=== PATIENT | male | born 1950 | race Caucasian/White ===

== ENCOUNTER 2020-08-15 11:21 | Inpatient (IN) ==
[2020-08-15] MEDS ORDERED: IOPAMIDOL 100 ML BOTTLE IV ONE (11:22)
[2020-08-15] MEDS ORDERED: 0.9 % SODIUM CHLORIDE 1,000 ML IV ONE ×2 (11:25→13:44)
[2020-08-15] MEDS ORDERED: IPRATROPIUM/ALBUTEROL 3 ML AMPUL.NEB NEB ONE (11:25)
[2020-08-15] MEDS ORDERED: ACETAMINOPHEN 1,000 MG/100 ML BAG IV ONE (11:28)
[2020-08-15] MEDS ORDERED: PIPERACILLIN SODIUM/TAZOBACTAM 3.375 GM in DEXTROSE 5% IN WATER 50 ML IV ONE (11:56)
--- NOTE | 2020-08-15 12:00 | XRay Report ---
CLINICAL INFORMATION: dyspnea COMPARISON: None. FINDINGS: Moderate cardiomegaly appreciated. Mediastinum is unremarkable. There is mild upper lobe redistribution of pulmonary vasculature. There is no definite edema - lungs are clear. No effusions IMPRESSION: Borderline CHF or volume overload Interpreted and Authenticated by: Torrey Alfredo 08/15/20
--- NOTE | 2020-08-15 12:37 | Emergency Department Note ---
SOB HPI General Chief Complaint: Shortness of Breath/Dyspnea Stated Complaint: shortness of breath, n/v, fever, chills Time Seen by Provider: 08/15/20 11:24 Source: patient and EMS Mode of arrival: EMS Limitations: no limitations History of Present Illness HPI Narrative: This a 69-year-old male who comes in with sepsis. He received his first Covid vaccine on 07/23/2020. He began developing viral symptoms with myalgias, fever, cough, mild shortness of breath, congestion on with worsening symptoms on Friday with high fever. He has continued to feel worse, so came in for evaluation. He has a history of CKD, gout, high blood pressure, urinary retention. Not diabetic, morbidly obese with a BMI 37. Denies new rashes or lesions. Denies diarrhea, dysuria or hematuria. He had little bit of nausea this morning. Lives at home with his , she is not symptomatic. Related Data Home Medications Medication Instructions Recorded Confirmed niacin 500 mg capsule,extended 500 mg PO QAM cap 11/25/14 08/15/20 release omega-3 fatty acids 1,000 mg 1,000 mg PO QDAY cap 11/25/14 08/15/20 capsule tamsulosin 0.4 mg capsule 0.4 mg PO QDAY cap 11/25/14 08/15/20 allopurinol 100 mg tablet 100 mg PO TID tab 11/21/17 08/15/20 cholecalciferol (vitamin D3) 50 2,000 unit PO QDAY cap 11/21/17 08/15/20 mcg (2,000 unit) capsule garlic extract 500 mg capsule 1,000 mg PO QDAY cap 11/21/17 08/15/20 losartan 100 1 tab PO QDAY 11/21/17 08/15/20 mg-hydrochlorothiazide 12.5 mg tablet magnesium 500 mg PO QDAY 11/21/17 08/15/20 multivitamin 1 tab PO QAM 05/12/20 08/15/20 amoxicillin-pot clavulanate 1 tab PO BID 08/15/20 08/15/20 atenolol 50 mg PO DAILY 08/15/20 08/15/20 Previous Rx's Medication Instructions Recorded diltiazem HCl 180 mg 180 mg PO QHS #90 cap 08/10/20 capsule,extended release 24 hr Allergies Allergy/AdvReac Type Severity Reaction Status Date / Time No Known Drug Allergies Allergy Verified 08/15/20 11:26 Review of Systems ROS ROS Narrative: Narrative: All systems ED: reviewed and negative except as stated. [facility] Narrative Patient History Narrative: Narrative: Medical/Surgical/Family History All Active Problems (Updated 08/15/20 @ 16:16 by Carmen Alvarado PA-C) Sepsis (Acute) Fever of unknown origin (FUO) (Acute) CKD stage G2/A3, GFR 60-89 and albumin creatinine ratio >300 mg/g (Chronic) Mixed hyperlipidemia (Chronic) Asymptomatic proteinuria (Chronic) Chronic Kidney Disease (Acute) Chronic kidney disease, stage II (mild) (Chronic) History of shoulder surgery (Acute) Hammer toe (Acute) History of foot surgery (Acute) Shoulder pain (Acute) Proteinuria (Chronic) Morbid obesity (Chronic) Hypertensive renal disease (Chronic) Hypertension, essential (Chronic) Hyperglycemia (Acute) Gout (Chronic) Edema (Chronic) Diverticulosis of colon (Chronic) Chronic obstructive pulmonary disease (Chronic) Chronic kidney disease, stage 1, normal or increased GFR (Chronic) Medical History (Updated 08/15/20 @ 16:16 by Carmen Alvarado PA-C) 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 BPH without urinary obstruction 04/21/2013 Chronic Kidney Disease Chronic kidney disease, stage 1, normal or increased GFR Chronic kidney disease, stage II (mild) Chronic obstructive pulmonary disease CKD stage G2/A3, GFR 60-89 and albumin creatinine ratio >300 mg/g Normal renal ultrasound actually enlarged kidneys 15 to 16 cm bilaterally), SPEP and UPEP, hepatitis serologies all negative Improved proteinuria with ARB Diverticulosis of colon Edema currently no edema will add spironolactone if needed Gout Hyperglycemia Hypertension, essential Goal less than 140/90mmHg, home SBPs per pt between 120-[address] with losartan HCTZ and atenolol Weight loss, daily walk for 30 min and low salt diet recommended Hypertensive renal disease at goal Stop atenolol (08/2020), add diltiazem 180 mg a day and continue losartan-hctz (100/12.5) no aldosterone antagonist follow low sodium diet walk for 30 min every day Mixed hyperlipidemia Currently not taking a statin is on niacin, omega-3 fish oil, and some garlic supplement Morbid obesity Onychomycosis Proteinuria Shoulder pain Surgical History Hammer toe surgery History of foot surgery Right foot History of shoulder surgery 07/2012 Left replacement Social History Smoking Status: Former smoker Alcohol Intake Frequency: holiday/special occasion only Exam Narrative Narrative: General: AOx3, NAD, nontoxic appearing. Pleasant and conversant. HEENT: PERRLA, EOMI, normocephalic. Moist mucous membranes. Normal facies and normal dentition. Chest: Symmetric, no pain to palpation Respiratory: Lungs subtle crackles bilaterally in the bases. No respiratory distress. Unlabored breathing. Heart: Tachycardia with regular rhythm, no murmurs/clicks/rubs. Abdomen: Non-tender, Non distended, normal bowel tones. No organomegaly. Extremities: Warm and well perfused. No edema. DP 2+ bilaterally. No venous stasis. Neuro: No focal deficits. Cranial nerves II-XII normal. Skin: Warm dry, pallor, no rashes or lesions, no cyanosis. Psych: Normal mood and affect Heme/Lymph: No bruising General Limitations: no limitations Course Course Course Narrative: 69-year-old male with is evaluated for presentation of sepsis with fever 102.4 Fahrenheit tachycardia Reevaluation(s) Reevaluation #1: Sepsis work-up to include CBC with differential, CMP, chest x- ray, urinalysis, take acid, D-dimer given his tachycardia and fever, blood cul tures x2, and troponin Give 1 L IV fluid hydration and monitor for fluid response. Tylenol for fever, start Zosyn empirically Reevaluation #2: Chest x-ray shows bilateral interstitial edema, no evidence of infiltrates. CBC resulted without leukocytosis. Lactic acid is 2.0. UA negative. CMP with only significant finding of slightly elevated bilirubin of 1.1. Creatinine 0.7. D-dimer elevated at 0.53. Heart rate with minimal improvement with 1 L IV fluid. Give additional liter IV fluid, CTA of the chest to rule out PE. Covid and influenza rapid screens were negative Reevaluation #3: CTA without evidence of PE or infiltrates. Findings are suggestive of mild bronchitis or asthma given slight wall thickening of the bronchi. Pleural spaces are noted as normal. Patient continues to fever to 102 Fahrenheit even with acetaminophen intervention. Still feeling quite weak. Heart rate remains elevated and he is hypertensive. He has not received his daily diltiazem so we will go ahead and give this during his evaluation here. This may be contributing to his tachycardia. Additional Reevaluation(s): Given patient's ongoing fever without known source he will need to be admitted for further work-up. Blood cultures x2 are pending. He has been given IV Zosyn and 2 L fluid resuscitation with significantly improved heart rate to the low 90s. Respiratory rate continues to be elevated at 28; however he is satting 94% on room air. I discussed this patient with the hospitalist who agrees to admission. Vital Signs Vital signs: Vital Signs Temperature 104 F H 08/15/20 11:22 Pulse Rate 115 H 08/15/20 11:22 Respiratory Rate 20 08/15/20 11:22 Pulse Oximetry (%) 95 08/15/20 11:22 Temperature 102.7 F H 08/15/20 18:07 Pulse Rate 92 H 08/15/20 18:46 Respiratory Rate 28 H 08/15/20 18:46 Blood Pressure 137/72 08/15/20 18:46 Pulse Oximetry (%) 94 08/15/20 18:46 MDM MDM Narrative Medical decision making narrative: Sepsis Fever of unknown origin Patient meets SIRS criteria with tachycardia, increased respiratory rate, and a lactic acid of 2.0. Patient has been hemodynamically stable with elevated blood pressures during this evaluation. He has been fluid responsive with 2 L IV fluids with heart rate improving to 92 bpm. Blood cultures x2 pending. Admit inpatient Lab Data Result diagrams: 08/15/20 12:06 08/15/20 12:06 Labs: Lab Results 08/15/20 08/15/20 08/15/20 Range/Units 12:06 12:06 12:06 WBC 9.8 (4.5-11.0) K/mcL RBC 4.08 L (4.50-5.90) M/mcL Hgb 13.0 L (13.5-16.5) g/dL Hct 36.5 L (41.0-55.0) % MCV 89.5 (80.0-100.0) fL MCH 31.9 (26.0-34.0) pg MCHC 35.6 (31.0-36.0) g/dL RDW 13.3 (11.5-14.5) % Plt Count 112 L (140-440) K/mcL MPV 11.1 H (7.4-10.4) fL Seg Neutrophils % 91 H (38-78) % Lymphocytes % 7 L (15-49) % Monocytes % (Manual) 2 (1-12) % Platelet Estimate Decreased A (Normal) RBC Morphology Abnormal A (Normal) Polychromasia 1+ A (None Seen) D-Dimer (0.27-0.50) ug/mL VBG Lactic Acid (0.5-2.0) mmol/L Sodium 138 (133-145) mmol/L Potassium 3.4 (3.3-5.1) mmol/L Chloride 101 (96-108) mmol/L Carbon Dioxide 24 (22-30) mmol/L Anion Gap 13.0 (8.0-16.0) BUN 18 (8-23) mg/dL Creatinine 1.1 (0.7-1.2) mg/dL GFR Calculation 67 Glucose 149 H (70-105) mg/dL Calcium 8.4 L (8.6-10.4) mg/dL Total Bilirubin 1.1 H (0.1-1.0) mg/dL AST 20 (<40) U/L ALT 9 (<40) U/L Alkaline Phosphatase 76 (39-117) U/L Troponin T < 0.01 (<0.03) ng/mL Total Protein 5.9 (5.9-8.4) gm/dL Albumin 3.5 (3.2-5.2) gm/dL Globulin 2.4 (2.2-3.7) gm/dL Albumin/Globulin Ratio 1.5 (1.0-2.3) Urine Color Urine Appearance (Clear) Urine pH (5.0-9.0) Ur Specific [place] (1.000-1.035) Urine Protein (Negative) mg/dL Urine Glucose (UA) (Negative) mg/dL Urine Ketones (Negative) mg/dL Urine Occult Blood (Negative) mg/dL Urine Nitrate (Negative) Urine Bilirubin (Negative) mg/dL Urine Urobilinogen mg/dL Ur Leukocyte Esterase (Negative) /ug Urine RBC (0-3) /hpf Urine WBC (0-4) /hpf Ur Squamous Epith Cells (0-4) /hpf Urine Bacteria (0) /hpf Urine Mucus (None) /hpf Ur Culture Indicated? 08/15/20 08/15/20 08/15/20 Range/Units 12:06 12:20 13:16 WBC (4.5-11.0) K/mcL RBC (4.50-5.90) M/mcL Hgb (13.5-16.5) g/dL Hct (41.0-55.0) % MCV (80.0-100.0) fL MCH (26.0-34.0) pg MCHC (31.0-36.0) g/dL RDW (11.5-14.5) % Plt Count (140-440) K/mcL MPV (7.4-10.4) fL Seg Neutrophils % (38-78) % Lymphocytes % (15-49) % Monocytes % (Manual) (1-12) % Platelet Estimate (Normal) RBC Morphology (Normal) Polychromasia (None Seen) D-Dimer 0.57 H (0.27-0.50) ug/mL VBG Lactic Acid 2.0 (0.5-2.0) mmol/L Sodium (133-145) mmol/L Potassium (3.3-5.1) mmol/L Chloride (96-108) mmol/L Carbon Dioxide (22-30) mmol/L Anion Gap (8.0-16.0) BUN (8-23) mg/dL Creatinine (0.7-1.2) mg/dL GFR Calculation Glucose (70-105) mg/dL Calcium (8.6-10.4) mg/dL Total Bilirubin (0.1-1.0) mg/dL AST (<40) U/L ALT (<40) U/L Alkaline Phosphatase (39-117) U/L Troponin T (<0.03) ng/mL Total Protein (5.9-8.4) gm/dL Albumin (3.2-5.2) gm/dL Globulin (2.2-3.7) gm/dL Albumin/Globulin Ratio (1.0-2.3) Urine Color [place] Urine Appearance Hazy A (Clear) Urine pH 6.0 (5.0-9.0) Ur Specific [place] 1.022 (1.000-1.035) Urine Protein >=500 A (Negative) mg/dL Urine Glucose (UA) Negative (Negative) mg/dL Urine Ketones Negative (Negative) mg/dL Urine Occult Blood Negative (Negative) mg/dL Urine Nitrate Negative (Negative) Urine Bilirubin Negative (Negative) mg/dL Urine Urobilinogen Negative mg/dL Ur Leukocyte Esterase Negative (Negative) /ug Urine RBC 1 (0-3) /hpf Urine WBC 1 (0-4) /hpf Ur Squamous Epith Cells 0 (0-4) /hpf Urine Bacteria None (0) /hpf Urine Mucus Few A (None) /hpf Ur Culture Indicated? No ED POC Tests ED POC Tests: HOMER - Influenza A Negative HOMER - Influenza B Negative HOMER - SARS Antigen Negative Discharge Plan Patient/Caregiver Discharge Instructions Pt seen by MUSIC REHABILITATION THERAPIST/PA only: Yes Clinical Impression: Sepsis, Chronic obstructive pulmonary disease, Fever of unknown origin (FUO) Patient Disposition: Xfer As Inpt ([facility]) Follow up with: Umesh Eason DO [Primary Care Provider] - Prescriptions: No Action cholecalciferol (vitamin D3) 2,000 unit capsule 2,000 unit PO QDAY RF: 0 garlic extract 500 mg capsule 1,000 mg PO QDAY RF: 0 magnesium 500 mg PO QDAY RF: 0 losartan-hydrochlorothiazide 100-12.5 mg tablet 1 tab PO QDAY RF: 0 allopurinol 100 mg tablet 100 mg PO TID RF: 0 omega-3 fatty acids 1,000 mg capsule 1,000 mg PO QDAY RF: 0 tamsulosin 0.4 mg capsule,extended release 24hr 0.4 mg PO QDAY RF: 0 niacin 500 mg capsule, extended release 500 mg PO QAM RF: 0 multivitamin [Daily Multi-Vitamin] Tablet 1 tab PO QAM RF: 0 diltiazem HCl 180 mg capsule,extended release 24hr 180 mg PO QHS Qty: 90 RF: 3 atenolol 50 mg tablet 50 mg PO DAILY RF: 0 amoxicillin-pot clavulanate 875-125 mg tablet 1 tab PO BID RF: 0
[2020-08-15 13:22] LABS: Hematocrit 36.5 % (41.0-55.0); Mean Cell Volume 89.5 fL (80.0-100.0); Mean Corpuscular HGB Conc 35.6 g/dL (31.0-36.0); Mean Platelet Volume 11.1 fL (7.4-10.4); Platelet Count 112 K/mcL (140-440); RBC 4.08 M/mcL (4.50-5.90); Red Cell Distribution Width 13.3 % (11.5-14.5); WBC 9.8 K/mcL (4.5-11.0)
[2020-08-15 13:33] LABS: ALT/SGPT 9 U/L (<40); AST/SGOT 20 U/L (<40); Albumin 3.5 gm/dL (3.2-5.2); Albumin/Globulin Ratio 1.5 (1.0-2.3); Alkaline Phosphatase 76 U/L (39-117); Bilirubin,Total 1.1 mg/dL (0.1-1.0); Blood Urea Nitrogen 18 mg/dL (8-23); Calcium 8.4 mg/dL (8.6-10.4); Carbon Dioxide 24 mmol/L (22-30); Chloride 101 mmol/L (96-108); Globulin 2.4 gm/dL (2.2-3.7); Glomerular Filtration Rate 67; Glucose 149 mg/dL (70-105)
[2020-08-15] MEDS ORDERED: DILTIAZEM 180 MG CAP.XL.24H PO ONE (13:37)
[2020-08-15 14:26] LABS: Appearance,Urine HAZY (Clear); Bilirubin,Urine Negative (Negative); Color,Urine AMBER; Culture Indicated,Urine No; Glucose,Urine (UA) Negative (Negative); Ketones,Urine Negative (Negative); Leukocyte Esterase,Urine Negative /ug (Negative); Mucus,Urine FEW /hpf; Nitrate,Urine Negative (Negative); Protein,Urine >=500 mg/dL (Negative); Specific Gravity,Urine 1.022 (1.000-1.035); Urine Blood Negative (Negative); Urine RBC 1 /hpf (0-3); Urine Squamous Epithelial Cell 0 /hpf (0-4); Urine WBC 1 /hpf (0-4); Urobilinogen,Urine Negative
[2020-08-15 14:32] LABS: Lymphocytes % 7 % (15-49); Monocytes % (Manual) 2 % (1-12); Platelet Estimate DECREASED (Normal); Polychromasia 1+ (None Seen); RBC Morphology ABNORMAL (Normal); Segmented Neutrophils % 91 % (38-78)
--- NOTE | 2020-08-15 15:27 | Cat Scan Report ---
CLINICAL INFORMATION: Elevated d-dimer, shortness of breath and fever COMPARISON: None. TECHNIQUE: 80ml of Isovue-370 were injected intravenously. Using SmartPrep to maximize pulmonary artery opacification, .625mm helical slices were obtained from the lung apices through the lung bases. Following reconstruction, 2.5 mm sagittal, coronal, and axial reformations were processed. The exam was reviewed at mediastinal, lung, and bone windows. The exam was performed using radiation dose optimization techniques including, but not limited to, automated exposure control, adjustment of the mA and/or kV according to patient size and use of iterative reconstruction technique. FINDINGS: Mediastinal windows show the pulmonary arteries are suboptimally opacified, but no emboli identified. There is mild enlargement of the central pulmonary arteries: the main pulmonary diameter 3.8 cm. This is suggestive, but not diagnostic of pulmonary hypertension. The thoracic aorta is normal diameter with diffuse intimal thickening. There are no abnormally enlarged lymph nodes and the mediastinal hilar or axillary region. Small hiatal hernia noted. The heart is mildly enlarged with scattered calcific fibrofatty plaque in the coronary arteries. The thyroid is unremarkable. Pulmonary parenchymal windows show mild elevation in lung volumes with slight wall thickening/dilatation of bronchi suggesting bronchitis or asthma. There is minimal scattered scarring and/or atelectasis in the peripheral lower lobes regions. There are no infiltrates. Pleural spaces are normal. Bone windows show minimal chronic wedging of the midthoracic vertebral bodies with endplate irregularity compatible mild Scheuermann's disease. Images should the superior abdomen show two cysts in the superior left kidney - both approximately 3 cm. IMPRESSION: No evidence of pulmonary embolus. Mild enlargement of the central pulmonary arteries is suggestive, but not diagnostic, of pulmonary hypertension. Mild bronchitis or asthma. No infiltrates. Mild cardiomegaly with scattered fibrofatty calcific plaque in the coronary arteries. Two simple cysts in the superior pole the left kidney - each approximately 3 cm Interpreted and Authenticated by: Torrey Alfredo 08/15/20
--- NOTE | 2020-08-15 16:35 | Internal Med History&Physical ---
HPI History of Present Illness Patient information: Note initiated : 08/15/20 at 4:29 pm Service Date, if different from initiated Date: [] Patient: Gustavo Menendez a 69 y/o M admitted on for shortness of breath, n/v, fever, chills. Chief Complaint: Fever chills shortness of breath History of present illness: Mr. Menendez is a 69 year old M with a history of CKD stage III/HTN/gout who presents to the ER with 5 days onset of gradually progressive weakness, chills, myalgias along with associated dyspnea. Patient symptom has progressed to the point he is not been able to function. He lives with his Jazmín and sees primary care physician Yumi. He denies exposure to sick contacts/bloody stool/productive cough/joint pain or rash. He denies changes in medications. He received his Covid vaccine 07/23. Initial work-up the ER was consistent SIRS with a fever of 102.4. Blood culture was drawn/CTA chest negative for PE. Antibiotics were initiated. Hospital service was consulted in light of above. At the time of my evaluation patient is alert and oriented. He was able to answer most of the question and talk in full sentences. He endorses to history as above. He denies syncopal episode/hemoptysis/weight loss/abdominal pain. Review of systems 10 point review system was performed and is negative except for ones discussed above PFSH PFSH All Active Problems (Updated 08/15/20 @ 16:16 by Carmen Alvarado PA-C) Sepsis (Acute) Fever of unknown origin (FUO) (Acute) CKD stage G2/A3, GFR 60-89 and albumin creatinine ratio >300 mg/g (Chronic) Mixed hyperlipidemia (Chronic) Asymptomatic proteinuria (Chronic) Chronic Kidney Disease (Acute) Chronic kidney disease, stage II (mild) (Chronic) History of shoulder surgery (Acute) Hammer toe (Acute) History of foot surgery (Acute) Shoulder pain (Acute) Proteinuria (Chronic) Morbid obesity (Chronic) Hypertensive renal disease (Chronic) Hypertension, essential (Chronic) Hyperglycemia (Acute) Gout (Chronic) Edema (Chronic) Diverticulosis of colon (Chronic) Chronic obstructive pulmonary disease (Chronic) Chronic kidney disease, stage 1, normal or increased GFR (Chronic) Medical History (Updated 08/15/20 @ 16:16 by Carmen Alvarado PA-C) 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 BPH without urinary obstruction 04/21/2013 Chronic Kidney Disease Chronic kidney disease, stage 1, normal or increased GFR Chronic kidney disease, stage II (mild) Chronic obstructive pulmonary disease CKD stage G2/A3, GFR 60-89 and albumin creatinine ratio >300 mg/g Normal renal ultrasound actually enlarged kidneys 15 to 16 cm bilaterally), SPEP and UPEP, hepatitis serologies all negative Improved proteinuria with ARB Diverticulosis of colon Edema currently no edema will add spironolactone if needed Gout Hyperglycemia Hypertension, essential Goal less than 140/90mmHg, home SBPs per pt between 120-[address] with losartan HCTZ and atenolol Weight loss, daily walk for 30 min and low salt diet recommended Hypertensive renal disease at goal Stop atenolol (08/2020), add diltiazem 180 mg a day and continue losartan-hctz (100/12.5) no aldosterone antagonist follow low sodium diet walk for 30 min every day Mixed hyperlipidemia Currently not taking a statin is on niacin, omega-3 fish oil, and some garlic supplement Morbid obesity Onychomycosis Proteinuria Shoulder pain Surgical History Hammer toe surgery History of foot surgery Right foot History of shoulder surgery 07/2012 Left replacement Social History (Updated 11/12/19 @ 09:54 by Ck Daiz MD) smoking status: Former smoker quit date: 06/10/98 pack-years: 35 smoking status start date: 06/10/1963 smoking status stop date: 07/24/98 alcohol intake frequency: holiday/special occasion only MEDS/ALLERGIES Home Medications and Allergies Home Medications Medication Instructions Recorded Confirmed Type niacin 500 mg capsule,extended 500 mg PO QAM cap 11/25/14 08/15/20 History release omega-3 fatty acids 1,000 mg 1,000 mg PO QDAY cap 11/25/14 08/15/20 History capsule tamsulosin 0.4 mg capsule 0.4 mg PO QDAY cap 11/25/14 08/15/20 History allopurinol 100 mg tablet 100 mg PO TID tab 11/21/17 08/15/20 History cholecalciferol (vitamin D3) 50 2,000 unit PO QDAY cap 11/21/17 08/15/20 History mcg (2,000 unit) capsule garlic extract 500 mg capsule 1,000 mg PO QDAY cap 11/21/17 08/15/20 History losartan 100 1 tab PO QDAY 11/21/17 08/15/20 History mg-hydrochlorothiazide 12.5 mg tablet magnesium 500 mg PO QDAY 11/21/17 08/15/20 History multivitamin 1 tab PO QAM 05/12/20 08/15/20 History diltiazem HCl 180 mg 180 mg PO QHS #90 cap 08/10/20 08/15/20 Rx capsule,extended release 24 hr amoxicillin-pot clavulanate 1 tab PO BID 08/15/20 08/15/20 History Allergies Allergy/AdvReac Type Severity Reaction Status Date / Time No Known Drug Allergies Allergy Verified 08/15/20 11:26 EXAM Constitutional Vitals: Temp Pulse Resp BP Pulse Ox 102.9 F H 98 H 28 H 164/86 93 08/15/20 15:00 08/15/20 16:04 08/15/20 16:04 08/15/20 14:32 08/15/20 16:04 Alert oriented but anxious Head normocephalic Oral cavity moist No ear nose discharge Eye movement symmetrical Neck supple no lymphadenopathy S1-S2 regular tachycardia Nonlabored breathing Nondistended nontender abdomen Lymphedema bilateral lower extremity, no cyanosis clubbing or joint swelling Skin no suspicious lesion Psych anxious but alert cooperative Neuro normal higher function DATA Data Completed and Pending Labs: Labs from last 24 hours 08/15/20 08/15/20 08/15/20 13:16 12:20 12:06 WBC RBC Hgb Hct MCV MCH MCHC RDW Plt Count MPV Seg Neutrophils % Lymphocytes % Monocytes % (Manual) Platelet Estimate RBC Morphology Polychromasia D-Dimer 0.57 H VBG Lactic Acid 2.0 Sodium Potassium Chloride Carbon Dioxide Anion Gap BUN Creatinine GFR Calculation Glucose Calcium Total Bilirubin AST ALT Alkaline Phosphatase Troponin T Total Protein Albumin Globulin Albumin/Globulin Ratio Urine Color [place] Urine Appearance Hazy A Urine pH 6.0 Ur Specific [place] 1.022 Urine Protein >=500 A Urine Glucose (UA) Negative Urine Ketones Negative Urine Occult Blood Negative Urine Nitrate Negative Urine Bilirubin Negative Urine Urobilinogen Negative Ur Leukocyte Esterase Negative Urine RBC 1 Urine WBC 1 Ur Squamous Epith Cells 0 Urine Bacteria None Urine Mucus Few A Ur Culture Indicated? No 08/15/20 08/15/20 08/15/20 12:06 12:06 12:06 WBC 9.8 RBC 4.08 L Hgb 13.0 L Hct 36.5 L MCV 89.5 MCH 31.9 MCHC 35.6 RDW 13.3 Plt Count 112 L MPV 11.1 H Seg Neutrophils % 91 H Lymphocytes % 7 L Monocytes % (Manual) 2 Platelet Estimate Decreased A RBC Morphology Abnormal A Polychromasia 1+ A D-Dimer VBG Lactic Acid Sodium 138 Potassium 3.4 Chloride 101 Carbon Dioxide 24 Anion Gap 13.0 BUN 18 Creatinine 1.1 GFR Calculation 67 Glucose 149 H Calcium 8.4 L Total Bilirubin 1.1 H AST 20 ALT 9 Alkaline Phosphatase 76 Troponin T < 0.01 Total Protein 5.9 Albumin 3.5 Globulin 2.4 Albumin/Globulin Ratio 1.5 Urine Color Urine Appearance Urine pH Ur Specific [place] Urine Protein Urine Glucose (UA) Urine Ketones Urine Occult Blood Urine Nitrate Urine Bilirubin Urine Urobilinogen Ur Leukocyte Esterase Urine RBC Urine WBC Ur Squamous Epith Cells Urine Bacteria Urine Mucus Ur Culture Indicated? A/P Narrative A/P Narrative: * Fever of unknown origin-panculture/empiric antibiotics initiated in ER. U nclear source. Continue source evaluation. Admit inpatient * Weakness/dyspnea and myalgia likely acute viral syndrome. Await COVID- 19/respiratory panel * History of hypertension on home dose diltiazem/losartan/atenolol * BPH on Flomax * History of CKD managed by Dr. Diaz outpatient nephrology * Gout continue allopurinol * Full code * Prophylax Heparin Plan * Inpatient admission * Pancultures * Antibiotic coverage * Pre-existing medical condition management as above * PT OT nutrition support Time Spent With Patient Time: Total time spent is greater than 50% in coordination of care (as documented) at patient's floor/unit and/or counseling patient:
[2020-08-15] MEDS ORDERED: ACETAMINOPHEN 325 MG TABLET PO ONE (17:44)
[2020-08-15] MEDS ORDERED: POLYETHYLENE GLYCOL 3350 17 GM PACKET PO PRN (20:29)
[2020-08-15] MEDS ORDERED: ONDANSETRON 4 MG/2 ML VIAL IV PRN (20:29)
[2020-08-15] MEDS ORDERED: POTASSIUM CHLORIDE 40 MEQ in DEXTROSE 5% IN WATER 500 ML IV PRN (20:29)
[2020-08-15] MEDS ORDERED: POTASSIUM CHLORIDE 20 MEQ PACKET PO PRN (20:29)
[2020-08-15] MEDS ORDERED: ACETAMINOPHEN 325 MG TABLET PO PRN (20:29)
[2020-08-15] MEDS ORDERED: ACETAMINOPHEN 650 MG/65 ML BAG IV PRN (20:29)
[2020-08-15] MEDS ORDERED: MELATONIN 3 MG TABLET PO PRN (20:29)
[2020-08-15] MEDS ORDERED: BISACODYL 10 MG SUPP.RECT PR PRN (20:29)
[2020-08-15] MEDS ORDERED: MAGNESIUM SULFATE 2 GM/50 ML BAG IV PRN (20:29)
[2020-08-15] MEDS ORDERED: ONDANSETRON 4 MG ODT TABLET SL PRN (20:29)
[2020-08-15] MEDS: 0.9 % SODIUM CHLORIDE 1,000 ML IV SCH (20:35)
[2020-08-15] MEDS: 0.9 % SODIUM CHLORIDE 10 ML SYRINGE IV SCH (20:35)
[2020-08-15] MEDS: HEPARIN 5,000 UNIT/ML VIAL SQ SCH (21:40)
[2020-08-15] MEDS: DOCUSATE SODIUM 100 MG CAPSULE PO SCH (21:40)
[2020-08-15] MEDS: SENNOSIDES/DOCUSATE SODIUM 1 TAB TABLET PO SCH (21:40)
[2020-08-15] MEDS: ALLOPURINOL 100 MG TABLET PO SCH (21:40)
[2020-08-15] MEDS: PIPERACILLIN SODIUM/TAZOBACTAM 3.375 GM in DEXTROSE 5% IN WATER 50 ML IV SCH (21:40)
[2020-08-15] MEDS: DILTIAZEM 180 MG CAP.XL.24H PO SCH (21:41)
[2020-08-16] MEDS ORDERED: VANCOMYCIN PER PHARMACY IV ONE (05:01)
[2020-08-16] MEDS ORDERED: VANCOMYCIN 1,500 MG in 0.9 % SODIUM CHLORIDE 500 ML IV ONE (05:08)
[2020-08-16] MEDS: 0.9 % SODIUM CHLORIDE 10 ML SYRINGE IV SCH ×3 (06:04→21:09)
[2020-08-16] MEDS: PIPERACILLIN SODIUM/TAZOBACTAM 3.375 GM in DEXTROSE 5% IN WATER 50 ML IV SCH ×3 (06:05→17:40)
[2020-08-16 07:11] LABS: Basophils # (Auto) 0.01 K/mcL (0.00-0.20); Basophils % (Auto) 0.1 % (0.0-2.0); Eosinophils # (Auto) 0 K/mcL (0.00-0.70); Eosinophils % (Auto) 0 % (0.0-7.0); Hemoglobin 11.4 g/dL (13.5-16.5); Lymphocytes # (Auto) 0.62 K/mcL (1.50-4.80); Lymphocytes % (Auto) 6.2 % (15.0-49.0); Mean Cell Volume 90.4 fL (80.0-100.0); Mean Corpuscular HGB Conc 34.5 g/dL (31.0-36.0); Mean Platelet Volume 11.4 fL (7.4-10.4); Monocytes # (Auto) 0.51 K/mcL (0.10-0.90); Monocytes % (Auto) 5.1 % (1.0-12.0); Neutrophils % (Auto) 88.6 % (38.0-78.0); Platelet Count 108 K/mcL (140-440); RBC 3.65 M/mcL (4.50-5.90); Red Cell Distribution Width 13.5 % (11.5-14.5)
[2020-08-16 07:50] LABS: ALT/SGPT 7 U/L (<40); AST/SGOT 20 U/L (<40); Albumin/Globulin Ratio 1.2 (1.0-2.3); Alkaline Phosphatase 65 U/L (39-117); Bilirubin,Direct < 0.2 mg/dL (0-0.3); Bilirubin,Total 0.7 mg/dL (0.1-1.0); Blood Urea Nitrogen 18 mg/dL (8-23); Carbon Dioxide 23 mmol/L (22-30); Chloride 102 mmol/L (96-108); Globulin 2.5 gm/dL (2.2-3.7); Glomerular Filtration Rate 67; Glucose 132 mg/dL (70-105); Lactate Dehydrogenase 296 U/L (135-225); Phosphorous 2.6 mg/dL (2.5-4.5); Triglycerides 111 mg/dL (<150); Uric Acid 4.9 mg/dL (2.5-8.0)
[2020-08-16] MEDS: NIACIN 250 MG CAP.SR.12H PO SCH (08:21)
[2020-08-16] MEDS: HEPARIN 5,000 UNIT/ML VIAL SQ SCH ×2 (08:22→21:08)
[2020-08-16] MEDS: TAMSULOSIN 0.4 MG CAPSULE PO SCH ×3 (08:22→08:25)
[2020-08-16] MEDS: DOCUSATE SODIUM 100 MG CAPSULE PO SCH ×2 (08:22→21:07)
[2020-08-16] MEDS: MULTIVIT,THER IRON,CA,FA & MIN 1 TABLET PO SCH (08:22)
[2020-08-16] MEDS: GARLIC EXTRACT PO SCH (08:22)
[2020-08-16] MEDS: ALLOPURINOL 100 MG TABLET PO SCH ×3 (08:22→21:07)
[2020-08-16] MEDS: MAGNESIUM OXIDE 400 MG TABLET PO SCH (08:22)
[2020-08-16] MEDS ORDERED: MULTIVIT,THER IRON,CA,FA & MIN 1 TABLET PO SCH (09:00)
--- NOTE | 2020-08-16 11:26 | Internal Med Progress Note ---
SUBJECTIVE Subjective Patient information: Note initiated : 08/16/20 at 11:23 am Service Date, if different from initiated Date: [] Patient: Gustavo Menendez a 69 y/o M admitted on 08/15/20 for shortness of breath, n/v, fever, chills. Chief Complaint: [] Interval history: History of present illness: Mr. Menendez is a 69 year old M with a history of CKD stage III/HTN/gout who presents to the ER with 5 days onset of gradually progressive weakness, chills, myalgias along with associated dyspnea. Patient symptom has progressed to the point he is not been able to function. He lives with his Jazmín and sees primary care physician Yumi. He denies exposure to sick contacts/bloody stool/productive cough/joint pain or rash. He denies changes in medications. He received his Covid vaccine 07/23. Initial work-up the ER was consistent SIRS with a fever of 102.4. Blood culture was drawn/CTA chest negative for PE. Antibiotics were initiated. Hospital service was consulted in light of above. At the time of my evaluation patient is alert and oriented. He was able to answer most of the question and talk in full sentences. He endorses to history as above. He denies syncopal episode/hemoptysis/weight loss/abdominal pain. 08/16-GPC bacteremia on blood cultures. Started on vancomycin. Echocardiogram ordered. Surveillance blood cultures. White count stable. Fever defervesced. Unclear source. Consider ID consult if persistent bacteremia and no identifiable source. White count 10,000, creatinine 1.1. No overnight events. No additional concerns expressed by nursing staff. Constitutional Vitals: Vital Signs Temp Pulse Resp BP Pulse Ox 98.5 F 80 14 140/76 94 08/16/20 08:24 08/16/20 08:24 08/16/20 08:24 08/16/20 06:00 08/16/20 08:24 Period Temp Pulse Resp BP Sys/Crow Pulse Ox Last 24 Hr 98.4 F-104.0 F 63-117 11-30 111-219/60-179 90-98 Intake and Output 08/15/20 08/16/20 08/16/20 21:59 05:59 13:59 Intake Total 1000 790 525 Output Total 525 150 Balance 1000 265 375 Weight 130.725 kg Alert oriented Nonlabored breathing No anxiety Intake & Output: Intake & Output 08/15/20 08/16/20 08/16/20 21:59 05:59 13:59 Intake Total 1000 790 525 Output Total 525 150 Balance 1000 265 375 Weight 130.725 kg Intake: IV 1000 50 525 Sodium Chloride 0.9% 1,000 ml @ 1000 475 50 mls/hr IV .Q20H [facility] Rx#: [id number] Zosyn 3.375 gm In Dextrose 5% 50 50 in Water 50 ml @ 100 mls/hr IV Q6H [facility] Rx#:[id number] Oral 740 Output: Urine Catheter Amount 150 Void Amount 525 Other: Meal Tuna salad with crackers. Percent of Meal Consumed 100% Feeding Ability Independent Urine Appearance Clear Urine Color Dark Yellow Dark Yellow Stool Size Large Stool Color Brown Brown Stool Consistency Formed Loose Loose # Voids 1 # Bowel Movements 1 1 # of times incontinent of 0 Bowels OBJ DATA Labs CBC & Chem 7: 08/16/20 05:43 08/16/20 05:43 Labs: Abnormal Lab Results 08/16/20 08/16/20 08/15/20 05:43 05:43 13:16 RBC 3.65 L Hgb 11.4 L Hct 33.0 L Plt Count 108 L MPV 11.4 H Neut % (Auto) 88.6 H Lymph % (Auto) 6.2 L Lymph # (Auto) 0.62 L Seg Neutrophils % Lymphocytes % Absolute Neutrophils 8.90 H Platelet Estimate RBC Morphology Polychromasia D-Dimer Glucose 132 H Calcium 8.0 L Total Bilirubin Lactate Dehydrogenase 296 H Total Protein 5.5 L Albumin 3.0 L Procalcitonin Urine Appearance Hazy A Urine Protein >=500 A Urine Mucus Few A 08/15/20 08/15/20 08/15/20 12:06 12:06 12:06 RBC Hgb Hct Plt Count MPV Neut % (Auto) Lymph % (Auto) Lymph # (Auto) Seg Neutrophils % Lymphocytes % Absolute Neutrophils Platelet Estimate RBC Morphology Polychromasia D-Dimer 0.57 H Glucose 149 H Calcium 8.4 L Total Bilirubin 1.1 H Lactate Dehydrogenase Total Protein Albumin Procalcitonin 1.01 H Urine Appearance Urine Protein Urine Mucus 08/15/20 12:06 RBC 4.08 L Hgb 13.0 L Hct 36.5 L Plt Count 112 L MPV 11.1 H Neut % (Auto) Lymph % (Auto) Lymph # (Auto) Seg Neutrophils % 91 H Lymphocytes % 7 L Absolute Neutrophils Platelet Estimate Decreased A RBC Morphology Abnormal A Polychromasia 1+ A D-Dimer Glucose Calcium Total Bilirubin Lactate Dehydrogenase Total Protein Albumin Procalcitonin Urine Appearance Urine Protein Urine Mucus Meds: Medications Acetaminophen (Acetaminophen 325 Mg Tablet) 650 mg PO Q4-6HP PRN; Protocol PRN Reason: Per Pain Protocol/Fever > 101 Last Admin: 08/16/20 02:12 Dose: 650 mg Documented by: Allopurinol (Allopurinol 100 Mg Tablet) 100 mg PO TID [facility] Last Admin: 08/16/20 08:22 Dose: 100 mg Documented by: Bisacodyl (Bisacodyl 10 Mg Supp.Rect) 10 mg [place] Q2-3DAYS PRN PRN Reason: Constipation Diltiazem HCl (Diltiazem 180 Mg Cap.Xl.24h) 180 mg PO QHS [facility] Last Admin: 08/15/20 21:41 Dose: Not Given Documented by: Docusate Sodium (Docusate Sodium 100 Mg Capsule) 100 mg PO BID [facility] Last Admin: 08/16/20 08:22 Dose: 100 mg Documented by: Heparin Sodium (Porcine) (Heparin 5,000 Unit/Ml Vial) 5,000 unit SQ Q12 [facility] Last Admin: 08/16/20 08:22 Dose: 5,000 unit Documented by: Potassium Chloride 40 meq/ (Dextrose) 520 mls @ 130 mls/hr IV UD PRN PRN Reason: K+ = or < 3.5 Acetaminophen (Ofirmev) 650 mg in 65 mls @ 130 mls/hr IV Q6HP PRN; Protocol PRN Reason: Per Pain Protocol/Fever > 101 Magnesium Sulfate (Magnesium Sulfate) 2 gm in 50 mls @ 50 mls/hr IV UD PRN PRN Reason: MG = or < 1.7 Sodium Chloride (Sodium Chloride 0.9%) 1,000 mls @ 50 mls/hr IV .Q20H [facility] Stop: 08/18/20 08:28 Last Infusion: 08/16/20 06:05 Dose: 0 mls/hr Documented by: Piperacillin Sod/Tazobactam (Sod 3.375 gm/ Dextrose) 50 mls @ 100 mls/hr IV Q6H [facility]; Protocol Last Infusion: 08/16/20 07:37 Dose: Infused Documented by: Vancomycin HCl 1,500 mg/ (Sodium Chloride) 500 mls @ 333.3 mls/hr IV Q12H [facility] Iron Carb/Multivit/Marine Firefighter/Folic Acid (Multivit,Ther Iron,Ca,Fa & Min 1 Tablet) 1 tab PO DAILY [facility] Last Admin: 08/16/20 08:22 Dose: 1 tab Documented by: Magnesium Oxide (Magnesium Oxide 400 Mg Tablet) 400 mg PO QDAY [facility] Last Admin: 08/16/20 08:22 Dose: 400 mg Documented by: Melatonin (Melatonin 3 Mg Tablet) 3 mg PO HSP PRN PRN Reason: Insomnia Niacin (Niacin 250 Mg Cap.Sr.12h) 500 mg PO QAM [facility] Last Admin: 08/16/20 08:21 Dose: 500 mg Documented by: Ondansetron HCl (Ondansetron 4 Mg Odt Tablet) 4 mg SL Q4-6HP PRN; Protocol PRN Reason: Nausea And Vomiting Ondansetron HCl (Ondansetron 4 Mg/2 Ml Vial) 4 mg IV Q4-6HP PRN; Protocol PRN Reason: Nausea And Vomiting Garlic Extract 500 (Mg Capsule) 2 dose PO QDAY [facility] Last Admin: 08/16/20 08:22 Dose: Not Given Documented by: Polyethylene Glycol (Polyethylene Glycol 3350 17 Gm Packet) 17 gm PO DAILYP PRN PRN Reason: Constipation Potassium Chloride (Potassium Chloride 20 Meq Packet) 40 meq PO DAILYP PRN PRN Reason: K+ < 3.5 Last Admin: 08/15/20 23:40 Dose: 40 meq Documented by: Senna/Docusate Sodium (Sennosides/Docusate Sodium 1 Tab Tablet) 1 tab PO HS [facility] Last Admin: 08/15/20 21:40 Dose: 1 tab Documented by: Sodium Chloride (0.9 % Sodium Chloride 10 Ml Syringe) 10 ml IV Q8 [facility] Last Admin: 08/16/20 06:04 Dose: Not Given Documented by: Tamsulosin HCl (Tamsulosin 0.4 Mg Capsule) 0.4 mg PO QDAY [facility] Last Admin: 08/16/20 08:25 Dose: 0.4 mg Documented by: A/P Narrative A/P Narrative: * GPC bacteremia-continue surveillance cultures/source evaluation/echocardiogram. Empiric antibiotic coverage for MRSA * sepsis secondary above. Continue management per guidelines. * Weakness/dyspnea and myalgia likely secondary to bacteremia. * History of hypertension on home dose diltiazem/losartan/atenolol with holding parameters * BPH continue home dose Flomax * History of CKD managed by Dr. Diaz outpatient nephrology. Creatinine at baseline * Gout continue allopurinol * Full code * Prophylax Heparin Plan * Bacteremia work-up * Echocardiogram * Surveillance cultures * Escalate antibiotic coverage and consider ID consult if no source identified * Pre-existing medical condition management as above * PT OT nutrition support Time Spent With Patient Time: Total time spent is greater than 50% in coordination of care (as documented) at patient's floor/unit and/or counseling patient:
[2020-08-16] MEDS: 0.9 % SODIUM CHLORIDE 1,000 ML IV SCH ×2 (17:40→20:59)
[2020-08-16] MEDS: VANCOMYCIN 1,500 MG in 0.9 % SODIUM CHLORIDE 500 ML IV SCH (21:04)
[2020-08-16] MEDS: DILTIAZEM 180 MG CAP.XL.24H PO SCH (21:07)
[2020-08-16] MEDS: SENNOSIDES/DOCUSATE SODIUM 1 TAB TABLET PO SCH (21:07)
[2020-08-17] MEDS: PIPERACILLIN SODIUM/TAZOBACTAM 3.375 GM in DEXTROSE 5% IN WATER 50 ML IV SCH ×2 (00:04→05:17)
[2020-08-17] MEDS: 0.9 % SODIUM CHLORIDE 10 ML SYRINGE IV SCH ×3 (05:20→20:16)
[2020-08-17 06:34] LABS: Basophils # (Auto) 0.01 K/mcL (0.00-0.20); Basophils % (Auto) 0.2 % (0.0-2.0); Eosinophils # (Auto) 0.09 K/mcL (0.00-0.70); Eosinophils % (Auto) 1.4 % (0.0-7.0); Hematocrit 31.5 % (41.0-55.0); Hemoglobin 10.8 g/dL (13.5-16.5); Lymphocytes # (Auto) 0.99 K/mcL (1.50-4.80); Lymphocytes % (Auto) 15.4 % (15.0-49.0); Mean Corpuscular HGB Conc 34.3 g/dL (31.0-36.0); Mean Platelet Volume 11.6 fL (7.4-10.4); Monocytes # (Auto) 0.51 K/mcL (0.10-0.90); Monocytes % (Auto) 7.9 % (1.0-12.0); Neutrophils % (Auto) 75.1 % (38.0-78.0); Platelet Count 95 K/mcL (140-440); RBC 3.46 M/mcL (4.50-5.90); Red Cell Distribution Width 13.6 % (11.5-14.5); WBC 6.4 K/mcL (4.5-11.0)
[2020-08-17 07:14] LABS: ALT/SGPT 6 U/L (<40); AST/SGOT 20 U/L (<40); Albumin 2.6 gm/dL (3.2-5.2); Alkaline Phosphatase 56 U/L (39-117); Bilirubin,Direct < 0.2 mg/dL (0-0.3); Bilirubin,Total 0.5 mg/dL (0.1-1.0); Blood Urea Nitrogen 16 mg/dL (8-23); Calcium 7.7 mg/dL (8.6-10.4); Carbon Dioxide 23 mmol/L (22-30); Chloride 104 mmol/L (96-108); Globulin 2.5 gm/dL (2.2-3.7); Glomerular Filtration Rate 76; Glucose 135 mg/dL (70-105); Lactate Dehydrogenase 259 U/L (135-225); Triglycerides 161 mg/dL (<150)
--- NOTE | 2020-08-17 08:46 | XRay Report ---
CLINICAL INFORMATION: CHF COMPARISON: 08/15/2020 FINDINGS: Moderate cardiomegaly show slight improvement. Mediastinum is accentuated by right rotation. Pulmonary vessels have returned to normal caliber. No definite edema. Bronchovascular markings in the lung bases are slightly more prominent on today's exam. No effusion IMPRESSION: Interval resolution CHF or volume overload. Minor bibasilar airspace disease is likely atelectasis. Developing infiltrate possible less likely Interpreted and Authenticated by: Torrey Alfredo 08/17/20
[2020-08-17] MEDS: ALLOPURINOL 100 MG TABLET PO SCH ×3 (09:11→20:16)
[2020-08-17] MEDS: MAGNESIUM OXIDE 400 MG TABLET PO SCH (09:11)
[2020-08-17] MEDS: MULTIVIT,THER IRON,CA,FA & MIN 1 TABLET PO SCH (09:11)
[2020-08-17] MEDS: NIACIN 250 MG CAP.SR.12H PO SCH (09:11)
[2020-08-17] MEDS: HEPARIN 5,000 UNIT/ML VIAL SQ SCH ×2 (09:11→20:16)
[2020-08-17] MEDS: TAMSULOSIN 0.4 MG CAPSULE PO SCH (09:11)
[2020-08-17] MEDS: VANCOMYCIN 1,500 MG in 0.9 % SODIUM CHLORIDE 500 ML IV SCH (09:12)
[2020-08-17] MEDS: DOCUSATE SODIUM 100 MG CAPSULE PO SCH ×2 (09:13→20:16)
[2020-08-17] MEDS: GARLIC EXTRACT PO SCH (09:14)
[2020-08-17] MEDS ORDERED: FLU VACC QS2020-21(6MOS UP)/PF 60 MCG/0.5 ML SYRINGE IM ONE (10:00)
--- NOTE | 2020-08-17 11:39 | Internal Med Progress Note ---
SUBJECTIVE Subjective Patient information: Note initiated : 08/17/20 at 11:35 am Service Date, if different from initiated Date: [] Patient: Gustavo Menendez a 69 y/o M admitted on 08/15/20 for shortness of breath, n/v, fever, chills. Chief Complaint: [] Interval history: History of present illness: Mr. Menendez is a 69 year old M with a history of CKD stage III/HTN/gout who presents to the ER with 5 days onset of gradually progressive weakness, chills, myalgias along with associated dyspnea. Patient symptom has progressed to the point he is not been able to function. He lives with his Jazmín and sees primary care physician Yumi. He denies exposure to sick contacts/bloody stool/productive cough/joint pain or rash. He denies changes in medications. He received his Covid vaccine 07/23. Initial work-up the ER was consistent SIRS with a fever of 102.4. Blood culture was drawn/CTA chest negative for PE. Antibiotics were initiated. Hospital service was consulted in light of above. At the time of my evaluation patient is alert and oriented. He was able to answer most of the question and talk in full sentences. He endorses to history as above. He denies syncopal episode/hemoptysis/weight loss/abdominal pain. 08/16-GPC bacteremia on blood cultures. Started on vancomycin. Echocardiogram ordered. Surveillance blood cultures. White count stable. Fever defervesced. Unclear source. Consider ID consult if persistent bacteremia and no identifiable source. White count 10,000, creatinine 1.1. No overnight events. No additional concerns expressed by nursing staff. 08/17-strep agalactiae on blood cultures. Repeat cultures pending. White count stable. Afebrile. Stable renal function. at bedside. Doing well. No overnight events. Blood pressures systolics around 150. Started on home dose YOUSIF inhibitor. Ongoing therapies. Antibiotics deescalated to Rocephin from Zosyn and vancomycin. Constitutional Vitals: Vital Signs Temp Pulse Resp BP Pulse Ox 97.6 F 56 L 17 153/89 95 08/17/20 10:01 08/17/20 10:01 08/17/20 10:01 08/17/20 10:01 08/17/20 10:01 Period Temp Pulse Resp BP Sys/Crow Pulse Ox Last 24 Hr 97.6 F-98.4 F 56-95 10-32 141-190/73-100 88-98 Intake and Output 08/16/20 08/17/20 08/17/20 21:59 05:59 13:59 Intake Total 580 850 16 Output Total 400 550 150 Balance 180 300 -134 Weight 130.907 kg alert oriented Nonlabored breathing Nondistended abdomen Lower extremity thickened toenails however no evidence of redness or lymphedema erythema Intake & Output: Intake & Output 08/16/20 08/17/20 08/17/20 21:59 05:59 13:59 Intake Total 580 850 16 Output Total 400 550 150 Balance 180 300 -134 Weight 130.907 kg Intake: IV 100 650 Sodium Chloride 0.9% 1,000 ml @ 0 50 mls/hr IV .Q20H [facility] Rx#: [id number] Zosyn 3.375 gm In Dextrose 5% 100 100 in Water 50 ml @ 100 mls/hr IV Q6H [facility] Rx#:[id number] Vancomycin 1,500 mg In Sodium 500 Chloride 0.9% 500 ml @ 333.3 mls/hr IV Q12H [facility] Rx#: [id number] Oral 480 200 16 Output: Void Amount 400 550 150 Other: Meal Lunch Breakfast Percent of Meal Consumed 100% 100% Feeding Ability Independent Independent Urine Appearance Clear Clear Clear Urine Color Dark Yellow Dark Yellow Bright Yellow Stool Size Moderate Stool Color Brown Stool Consistency Formed Liquid # Voids 1 OBJ DATA Labs CBC & Chem 7: 08/17/20 05:12 08/17/20 05:12 Labs: Abnormal Lab Results 08/17/20 08/17/20 08/16/20 05:12 05:12 05:43 RBC 3.46 L Hgb 10.8 L Hct 31.5 L Plt Count 95 L MPV 11.6 H Neut % (Auto) Lymph % (Auto) Lymph # (Auto) 0.99 L Seg Neutrophils % Lymphocytes % Absolute Neutrophils Platelet Estimate RBC Morphology Polychromasia D-Dimer Glucose 135 H 132 H Calcium 7.7 L 8.0 L Phosphorus 2.0 L Total Bilirubin Lactate Dehydrogenase 259 H 296 H Total Protein 5.1 L 5.5 L Albumin 2.6 L 3.0 L Triglycerides 161 H Procalcitonin Urine Appearance Urine Protein Urine Mucus 08/16/20 08/15/2008/15/21 05:43 13:16 12:06 RBC 3.65 L Hgb 11.4 L Hct 33.0 L Plt Count 108 L MPV 11.4 H Neut % (Auto) 88.6 H Lymph % (Auto) 6.2 L Lymph # (Auto) 0.62 L Seg Neutrophils % Lymphocytes % Absolute Neutrophils 8.90 H Platelet Estimate RBC Morphology Polychromasia D-Dimer Glucose Calcium Phosphorus Total Bilirubin Lactate Dehydrogenase Total Protein Albumin Triglycerides Procalcitonin 1.01 H Urine Appearance Hazy A Urine Protein >=500 A Urine Mucus Few A 08/15/20 08/15/20 08/15/20 12:06 12:06 12:06 RBC 4.08 L Hgb 13.0 L Hct 36.5 L Plt Count 112 L MPV 11.1 H Neut % (Auto) Lymph % (Auto) Lymph # (Auto) Seg Neutrophils % 91 H Lymphocytes % 7 L Absolute Neutrophils Platelet Estimate Decreased A RBC Morphology Abnormal A Polychromasia 1+ A D-Dimer 0.57 H Glucose 149 H Calcium 8.4 L Phosphorus Total Bilirubin 1.1 H Lactate Dehydrogenase Total Protein Albumin Triglycerides Procalcitonin Urine Appearance Urine Protein Urine Mucus Meds: Medications Acetaminophen (Acetaminophen 325 Mg Tablet) 650 mg PO Q4-6HP PRN; Protocol PRN Reason: Per Pain Protocol/Fever > 101 Last Admin: 08/16/20 02:12 Dose: 650 mg Documented by: Allopurinol (Allopurinol 100 Mg Tablet) 100 mg PO TID [facility] Last Admin: 08/17/20 09:11 Dose: 100 mg Documented by: Bisacodyl (Bisacodyl 10 Mg Supp.Rect) 10 mg [place] Q2-3DAYS PRN PRN Reason: Constipation Diltiazem HCl (Diltiazem 180 Mg Cap.Xl.24h) 180 mg PO QHS [facility] Last Admin: 08/16/20 21:07 Dose: 180 mg Documented by: Docusate Sodium (Docusate Sodium 100 Mg Capsule) 100 mg PO BID [facility] Last Admin: 08/17/20 09:13 Dose: Not Given Documented by: Heparin Sodium (Porcine) (Heparin 5,000 Unit/Ml Vial) 5,000 unit SQ Q12 [facility] Last Admin: 08/17/20 09:11 Dose: 5,000 unit Documented by: Potassium Chloride 40 meq/ (Dextrose) 520 mls @ 130 mls/hr IV UD PRN PRN Reason: K+ = or < 3.5 Acetaminophen (Ofirmev) 650 mg in 65 mls @ 130 mls/hr IV Q6HP PRN; Protocol PRN Reason: Per Pain Protocol/Fever > 101 Magnesium Sulfate (Magnesium Sulfate) 2 gm in 50 mls @ 50 mls/hr IV UD PRN PRN Reason: MG = or < 1.7 Last Infusion: 08/17/20 02:05 Dose: Infused Documented by: Sodium Chloride (Sodium Chloride 0.9%) 1,000 mls @ 50 mls/hr IV .Q20H [facility] Stop: 08/18/20 08:28 Last Admin: 08/16/20 20:59 Dose: 50 mls/hr Documented by: Ceftriaxone Sodium 2 gm/ (Dextrose) 50 mls @ 100 mls/hr IV Q24H [facility]; Protocol Iron Carb/Multivit/Neotsu/Folic Acid (Multivit,Ther Iron,Ca,Fa & Min 1 Tablet) 1 tab PO DAILY [facility] Last Admin: 08/17/20 09:11 Dose: 1 tab Documented by: Magnesium Oxide (Magnesium Oxide 400 Mg Tablet) 400 mg PO QDAY [facility] Last Admin: 08/17/20 09:11 Dose: 400 mg Documented by: Melatonin (Melatonin 3 Mg Tablet) 3 mg PO HSP PRN PRN Reason: Insomnia Niacin (Niacin 250 Mg Cap.Sr.12h) 500 mg PO QAM [facility] Last Admin: 08/17/20 09:11 Dose: 500 mg Documented by: Ondansetron HCl (Ondansetron 4 Mg Odt Tablet) 4 mg SL Q4-6HP PRN; Protocol PRN Reason: Nausea And Vomiting Ondansetron HCl (Ondansetron 4 Mg/2 Ml Vial) 4 mg IV Q4-6HP PRN; Protocol PRN Reason: Nausea And Vomiting Garlic Extract 500 (Mg Capsule) 2 dose PO QDAY [facility] Last Admin: 08/17/20 09:14 Dose: Not Given Documented by: Polyethylene Glycol (Polyethylene Glycol 3350 17 Gm Packet) 17 gm PO DAILYP PRN PRN Reason: Constipation Potassium Chloride (Potassium Chloride 20 Meq Packet) 40 meq PO DAILYP PRN PRN Reason: K+ < 3.5 Last Admin: 08/15/20 23:40 Dose: 40 meq Documented by: Senna/Docusate Sodium (Sennosides/Docusate Sodium 1 Tab Tablet) 1 tab PO HS [facility] Last Admin: 08/16/20 21:07 Dose: Not Given Documented by: Sodium Chloride (0.9 % Sodium Chloride 10 Ml Syringe) 10 ml IV Q8 [facility] Last Admin: 08/17/20 05:20 Dose: Not Given Documented by: Tamsulosin HCl (Tamsulosin 0.4 Mg Capsule) 0.4 mg PO QDAY [facility] Last Admin: 08/17/20 09:11 Dose: 0.4 mg Documented by: A/P Narrative A/P Narrative: * Streptococcus agalactiae bacteremia-negative surveillance cultures on Rocephin. Echocardiogram pending.. * Sepsis secondary above. Clinical improvement noted on management per guidelines. * Weakness/dyspnea and myalgia likely secondary to bacteremia. * History of hypertension on home dose diltiazem/losartan/atenolol with holding parameters * BPH continue home dose Flomax * History of CKD managed by Dr. Diaz outpatient nephrology. Creatinine at baseline * Gout continue allopurinol * Full code * Prophylax Heparin Plan * Bacteremia work-up/ID consult * Echocardiogram * Surveillance cultures * Switched to Rocephin * Pre-existing medical condition management as above * PT OT nutrition support Time Spent With Patient Time: Total time spent is greater than 50% in coordination of care (as documented) at patient's floor/unit and/or counseling patient:
[2020-08-17] MEDS ORDERED: cefTRIAXone 2 GM in DEXTROSE 5% IN WATER 50 ML IV SCH (11:45)
[2020-08-17] MEDS: 0.9 % SODIUM CHLORIDE 1,000 ML IV SCH ×3 (12:30→15:24)
[2020-08-17] MEDS ORDERED: ACETAMINOPHEN 650 MG/65 ML BAG IV PRN (14:36)
[2020-08-17] MEDS ORDERED: POTASSIUM CHLORIDE 40 MEQ in DEXTROSE 5% IN WATER 500 ML IV PRN (14:36)
[2020-08-17] MEDS ORDERED: BISACODYL 10 MG SUPP.RECT PR PRN (14:36)
[2020-08-17] MEDS ORDERED: POTASSIUM CHLORIDE 20 MEQ PACKET PO PRN (14:36)
[2020-08-17] MEDS ORDERED: ONDANSETRON 4 MG/2 ML VIAL IV PRN (14:36)
[2020-08-17] MEDS ORDERED: ONDANSETRON 4 MG ODT TABLET SL PRN (14:36)
[2020-08-17] MEDS ORDERED: MAGNESIUM SULFATE 2 GM/50 ML BAG IV PRN (14:36)
--- NOTE | 2020-08-17 17:49 | Infectious Disease Consult ---
HPI Data of Consult Primary Care Provider: Umesh Eason Consult Narrative Patient Information: Note initiated : 08/17/20 at 5:35 pm Service Date, if different from initiated Date: [] Patient: Gustavo Menendez a 69 y/o M admitted on 08/15/20 for shortness of breath, n/v, fever, chills. Chief Complaint: [] Gustavo is a 69-year-old man who was admitted into the hospital on August 15 with 3 days of symptoms. He reports soreness in his mid back for 3 days along with fevers and shaking chills. He developed shortness of breath which prompted him to come into the emergency department. His temperature on admit was 102.4. Chest x-ray showed findings consistent with pulmonary edema. No evidence of pneumonia by chest x-ray. No evidence of urinary tract infection. He had positive blood cultures for group B strep on August 15. Blood cultures from yesterday also are showing gram-positive cocci. No history of heart murmur. Ec hocardiogram has been completed today and are pending. Blood cultures were also repeated today. He had an admit white count of 9.8. White count today 6.4 with a platelet count of 95,000. He has no known previous history of thrombocytopenia. He is currently day 3 antibiotics. His antibiotics were adjusted to Rocephin today [address] Sanchez asked for consultation for antibiotic recommendations. Patient reports that he is feeling better today than when he was first admitted. I was able to elicit a history that he has had sinus symptoms for approximately 2 months. No history of recent antibiotics to treat sinus infection although he does have a previous history prior to this receiving antibiotics for sinus infections. He has noticed improvement in sinus congestion and headache since admission. cc:: CC: Darren Wasserman Review of Systems Review of systems: General: Fevers and chills 3 days prior to admission. HEENT: Mild headache. Mild to moderate sinus congestion. No sore throat no neck complaints or swollen lymph nodes. Pulmonary: No current cough or shortness of breath but he did have shortness of breath upon admission. Cardiac. No history of rheumatic fever or heart murmur. He does report scarlatiniform rash when he was a child. Abdomen: No abdominal pain. He reports loose stools from laxatives provided during this hospital stay. Extremities: He has previously had right foot surgery with bone infection. He has noticed slight increase in swelling left leg more than right. No previous history of leg cellulitis. Skin no complaints of rash. 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/g (Chronic) Mixed hyperlipidemia (Chronic) Asymptomatic proteinuria (Chronic) Chronic Kidney Disease (Acute) Chronic kidney disease, stage II (mild) (Chronic) History of shoulder surgery (Acute) Hammer toe (Acute) History of foot surgery (Acute) Shoulder pain (Acute) Proteinuria (Chronic) Morbid obesity (Chronic) Hypertensive renal disease (Chronic) Hypertension, essential (Chronic) Hyperglycemia (Acute) Gout (Chronic) Edema (Chronic) Diverticulosis of colon (Chronic) Chronic obstructive pulmonary disease (Chronic) Chronic kidney disease, stage 1, normal or increased GFR (Chronic) Medical History (Updated 08/17/20 @ 17:49 by Gregorio Suarez MD) 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 BPH without urinary obstruction 04/21/2013 Chronic Kidney Disease Chronic kidney disease, stage 1, normal or increased GFR Chronic kidney disease, stage II (mild) Chronic obstructive pulmonary disease CKD stage G2/A3, 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 and albumin creatinine ratio >300 mg/g Normal renal ultrasound actually enlarged kidneys 15 to 16 cm bilaterally), SPEP and UPEP, hepatitis serologies all negative Improved proteinuria with ARB Diverticulosis of colon Edema currently no edema will add spironolactone if needed Gout Hyperglycemia Hypertension, essential Goal less than 140/90mmHg, home SBPs per pt between 120-[address] with losartan HCTZ and atenolol Weight loss, daily walk for 30 min and low salt diet recommended Hypertensive renal disease at goal Stop atenolol (08/2020), add diltiazem 180 mg a day and continue losartan-hctz (100/12.5) no aldosterone antagonist follow low sodium diet walk for 30 min every day Mixed hyperlipidemia Currently not taking a statin is on niacin, omega-3 fish oil, and some garlic supplement Morbid obesity Onychomycosis Proteinuria Shoulder pain Surgical History Hammer toe surgery History of foot surgery Right foot History of shoulder surgery 07/2012 Left replacement Social History smoking status: Former smoker quit date: 06/10/98 pack-years: 35 smoking status start date: 06/10/1963 smoking status stop date: 07/24/98 alcohol intake frequency: holiday/special occasion only MEDS/ALLERGIES Home Medications and Allergies Home Medications Medication Instructions Recorded Confirmed Type niacin 500 mg capsule,extended 500 mg PO QAM cap 11/25/14 08/15/20 History release omega-3 fatty acids 1,000 mg 1,000 mg PO QDAY cap 11/25/14 08/15/20 History capsule tamsulosin 0.4 mg capsule 0.4 mg PO QDAY cap 11/25/14 08/15/20 History allopurinol 100 mg tablet 100 mg PO TID tab 11/21/17 08/15/20 History cholecalciferol (vitamin D3) 50 2,000 unit PO QDAY cap 11/21/17 08/15/20 History mcg (2,000 unit) capsule garlic extract 500 mg capsule 1,000 mg PO QDAY cap 11/21/17 08/15/20 History losartan 100 1 tab PO QDAY 11/21/17 08/15/20 History mg-hydrochlorothiazide 12.5 mg tablet magnesium 500 mg PO QDAY 11/21/17 08/15/20 History multivitamin 1 tab PO QAM 05/12/20 08/15/20 History diltiazem HCl 180 mg 180 mg PO QHS #90 cap 08/10/20 08/15/20 Rx capsule,extended release 24 hr amoxicillin-pot clavulanate 1 tab PO BID 08/15/20 08/15/20 History Allergies Allergy/AdvReac Type Severity Reaction Status Date / Time No Known Drug Allergies Allergy Verified 08/15/20 11:26 Physical Examination Vital Signs Vital signs: Temp Pulse Resp BP Pulse Ox 97.5 F 61 18 133/60 96 08/17/20 16:00 08/17/20 16:00 08/17/20 16:00 08/17/20 16:00 08/17/20 16:00 Additional Exam Additional exam: General: Sitting up on the edge of the bed. No acute distress. He does not require supplemental O2. He is able to answer all of my questions. HEENT: Mouth is moist. He does have a nasally voice. No facial erythema or swelling. EOMI. PERRL sclera anicteric. Neck is full. Lungs are clear bilaterally. Back without rash or tenderness. Heart: Regular rate and rhythm without murmur. Abdomen: Obese soft nontender. Extremities: Positive onychomycosis. 3+ edema in the left leg 2+ edema in the right leg. No erythema. 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 He has a previous left shoulder replacement July 2012. No swelling over the left shoulder. No knee effusions. He also has a history of gout but no evidence of gout now. Skin without rash. Although it is dry. Results Laboratory Findings CBC and BMP: 08/17/20 05:12 08/17/20 05:12 ABG, PT/INR, D-dimer: PT/INR, D-dimer D-Dimer 0.57 ug/mL (0.27-0.50) H 08/15/20 12:06 Abnormal lab findings: Abnormal Labs 08/15/20 08/15/20 08/15/20 12:06 12:06 12:06 RBC 4.08 L Hgb 13.0 L Hct 36.5 L Plt Count 112 L MPV 11.1 H Neut % (Auto) Lymph % (Auto) Lymph # (Auto) Seg Neutrophils % 91 H Lymphocytes % 7 L Absolute Neutrophils Platelet Estimate Decreased A RBC Morphology Abnormal A Polychromasia 1+ A D-Dimer 0.57 H Glucose 149 H Calcium 8.4 L Phosphorus Total Bilirubin 1.1 H Lactate Dehydrogenase Total Protein Albumin Triglycerides Procalcitonin Urine Appearance Urine Protein Urine Mucus 08/15/20 08/15/20 08/16/20 12:06 13:16 05:43 RBC 3.65 L Hgb 11.4 L Hct 33.0 L Plt Count 108 L MPV 11.4 H Neut % (Auto) 88.6 H Lymph % (Auto) 6.2 L Lymph # (Auto) 0.62 L Seg Neutrophils % Lymphocytes % Absolute Neutrophils 8.90 H Platelet Estimate RBC Morphology Polychromasia D-Dimer Glucose Calcium Phosphorus Total Bilirubin Lactate Dehydrogenase Total Protein Albumin Triglycerides Procalcitonin 1.01 H Urine Appearance Hazy A Urine Protein >=500 A Urine Mucus Few A 08/16/20 08/17/20 08/17/20 05:43 05:12 05:12 RBC 3.46 L Hgb 10.8 L Hct 31.5 L Plt Count 95 L MPV 11.6 H Neut % (Auto) Lymph % (Auto) Lymph # (Auto) 0.99 L Seg Neutrophils % Lymphocytes % Absolute Neutrophils Platelet Estimate RBC Morphology Polychromasia D-Dimer Glucose 132 H 135 H Calcium 8.0 L 7.7 L Phosphorus 2.0 L Total Bilirubin Lactate Dehydrogenase 296 H 259 H Total Protein 5.5 L 5.1 L Albumin 3.0 L 2.6 L Triglycerides 161 H Procalcitonin Urine Appearance Urine Protein Urine Mucus Microbiology: Microbiology 08/16/20 05:43 Blood Blood Culture - Preliminary Gram positive cocci 08/15/20 12:06 Blood Blood Culture - Preliminary Strep agalactiae - (group b) 08/15/20 12:12 Blood Blood Culture - Preliminary Strep agalactiae - (group b) 08/16/20 05:43 Blood Blood Culture - Preliminary 08/15/20 16:39 Nasopharynx SARS-CoV-2, Influenza & RSV (PCR) - Final Blood culture positive for group B strep August 15 blood culture positive for gram-positive cocci August 16. Blood cultures today are pending. Echocardiogram pending. A/P Assessment and plan (1) Sepsis: Status: Acute Comment: Gustavo is a 69-year-old obese man who is hospital day 3 for sepsis. Sepsis parameters have improved. He is currently day 3 antibiotics presently on Rocephin 2 g once daily. (2) Fever of unknown origin (FUO): Status: Acute Comment: Fever pattern improved. Source group B strep bacteremia. (3) Sinusitis: Status: Acute Comment: Patient reports sinus symptoms for 2 months. He has noticed improvement in sinus congestion since admission. I think it be reasonable to obtain CT scan of the sinuses to evaluate for chronic sinusitis. (4) Bacteremia due to group B Streptococcus: Status: Acute Comment: Typically, group B strep would originate from skin source. I do not see any evidence of lower extremity cellulitis but it would appear that he is at risk. He has lower extremity edema with previous deformity to the right foot. I do not see any signs of cellulitis in either leg. No knee effusions or leg erythema. Patient is not diabetic. He does have thrombocytopenia identified. No history of cirrhosis. Thrombocytopenia may be related to acute sepsis. Continue to monitor for platelet recovery. Follow-up on echocardiogram. Follow-up for surveillance negative blood cultures. Left shoulder replacement does not appear problematic. The only reliable symptomology is sinus disease. Follow-up on CT scan of the sinuses. Duration of IV Rocephin yet to be determined. Thank you very much for let me be involved in [facility]'s consultative care. Time Spent With Patient Time: Total time spent is greater than 50% in coordination of care (as documented) at patient's floor/unit and/or counseling patient:
[2020-08-17] MEDS: DILTIAZEM 180 MG CAP.XL.24H PO SCH (20:16)
[2020-08-17] MEDS ORDERED: MELATONIN 3 MG TABLET PO PRN (21:00)
[2020-08-17] MEDS: SENNOSIDES/DOCUSATE SODIUM 1 TAB TABLET PO SCH (21:17)
[2020-08-18] MEDS: 0.9 % SODIUM CHLORIDE 1,000 ML IV SCH (04:30)
[2020-08-18] MEDS: 0.9 % SODIUM CHLORIDE 10 ML SYRINGE IV SCH ×3 (04:53→20:17)
[2020-08-18 07:26] LABS: Basophils # (Auto) 0.02 K/mcL (0.00-0.20); Basophils % (Auto) 0.3 % (0.0-2.0); Eosinophils # (Auto) 0.12 K/mcL (0.00-0.70); Hematocrit 33.2 % (41.0-55.0); Hemoglobin 11.3 g/dL (13.5-16.5); Lymphocytes % (Auto) 14.7 % (15.0-49.0); Mean Platelet Volume 11.7 fL (7.4-10.4); Monocytes # (Auto) 0.48 K/mcL (0.10-0.90); Monocytes % (Auto) 7.8 % (1.0-12.0); Neutrophils % (Auto) 75.2 % (38.0-78.0); Platelet Count 96 K/mcL (140-440); RBC 3.65 M/mcL (4.50-5.90); Red Cell Distribution Width 13.3 % (11.5-14.5); WBC 6.1 K/mcL (4.5-11.0)
[2020-08-18 07:53] LABS: ALT/SGPT 9 U/L (<40); AST/SGOT 20 U/L (<40); Albumin 2.7 gm/dL (3.2-5.2); Albumin/Globulin Ratio 1.1 (1.0-2.3); Alkaline Phosphatase 60 U/L (39-117); Bilirubin,Direct < 0.2 mg/dL (0-0.3); Bilirubin,Total 0.5 mg/dL (0.1-1.0); Blood Urea Nitrogen 13 mg/dL (8-23); Calcium 7.7 mg/dL (8.6-10.4); Carbon Dioxide 23 mmol/L (22-30); Chloride 105 mmol/L (96-108); Globulin 2.5 gm/dL (2.2-3.7); Glomerular Filtration Rate 86; Glucose 139 mg/dL (70-105); Lactate Dehydrogenase 219 U/L (135-225); Phosphorous 2.2 mg/dL (2.5-4.5); Triglycerides 150 mg/dL (<150); Uric Acid 4.1 mg/dL (2.5-8.0)
[2020-08-18] MEDS ORDERED: HYDROCHLOROTHIAZIDE 12.5 MG CAPSULE PO SCH (09:00)
[2020-08-18] MEDS ORDERED: LOSARTAN 50 MG TABLET PO SCH (09:00)
[2020-08-18] MEDS ORDERED: cefTRIAXone 2 GM VIAL ONE (09:08)
[2020-08-18] MEDS: LOSARTAN 50 MG TABLET PO SCH (09:10)
[2020-08-18] MEDS: HYDROCHLOROTHIAZIDE 12.5 MG CAPSULE PO SCH (09:11)
[2020-08-18] MEDS: TAMSULOSIN 0.4 MG CAPSULE PO SCH (09:11)
[2020-08-18] MEDS: MULTIVIT,THER IRON,CA,FA & MIN 1 TABLET PO SCH (09:12)
[2020-08-18] MEDS: MAGNESIUM OXIDE 400 MG TABLET PO SCH (09:12)
[2020-08-18] MEDS: NIACIN 250 MG CAP.SR.12H PO SCH (09:14)
[2020-08-18] MEDS: HEPARIN 5,000 UNIT/ML VIAL SQ SCH ×2 (09:15→20:16)
[2020-08-18] MEDS: DOCUSATE SODIUM 100 MG CAPSULE PO SCH ×2 (09:15→20:15)
[2020-08-18] MEDS: cefTRIAXone 2 GM in DEXTROSE 5% IN WATER 50 ML IV SCH (09:16)
[2020-08-18] MEDS: GARLIC EXTRACT PO SCH (09:17)
[2020-08-18] MEDS: ALLOPURINOL 100 MG TABLET PO SCH ×3 (10:00→20:16)
--- NOTE | 2020-08-18 10:08 | Internal Med Progress Note ---
SUBJECTIVE Subjective Patient information: Note initiated : 08/18/20 at 10:05 am Service Date, if different from initiated Date: [] Patient: Gustavo Menendez a 69 y/o M admitted on 08/15/20 for shortness of breath, n/v, fever, chills. Chief Complaint: [] Interval history: History of present illness: Mr. Menendez is a 69 year old M with a history of CKD stage III/HTN/gout who presents to the ER with 5 days onset of gradually progressive weakness, chills, myalgias along with associated dyspnea. Patient symptom has progressed to the point he is not been able to function. He lives with his Jazmín and sees primary care physician Yumi. He denies exposure to sick contacts/bloody stool/productive cough/joint pain or rash. He denies changes in medications. He received his Covid vaccine 07/23. Initial work-up the ER was consistent SIRS with a fever of 102.4. Blood culture was drawn/CTA chest negative for PE. Antibiotics were initiated. Hospital service was consulted in light of above. At the time of my evaluation patient is alert and oriented. He was able to answer most of the question and talk in full sentences. He endorses to history as above. He denies syncopal episode/hemoptysis/weight loss/abdominal pain. 08/16-GPC bacteremia on blood cultures. Started on vancomycin. Echocardiogram ordered. Surveillance blood cultures. White count stable. Fever defervesced. Unclear source. Consider ID consult if persistent bacteremia and no identifiable source. White count 10,000, creatinine 1.1. No overnight events. No additional concerns expressed by nursing staff. 08/17-strep agalactiae on blood cultures. Repeat cultures pending. White count stable. Afebrile. Stable renal function. at bedside. Doing well. No overnight events. Blood pressures systolics around 150. Started on home dose YOUSIF inhibitor. Ongoing therapies. Antibiotics deescalated to Rocephin from Zosyn and vancomycin. 08/18-repeat blood cultures positive for gram-positive cocci. Echocardiogram performed. ID consulted. Recommends CT sinuses. No obvious source of infection. White count stable. On Rocephin. Duration of antibiotics will be determined based on surveillance cultures results. at bedside. No other concerns pain fever shortness of breath. Constitutional Vitals: Vital Signs Temp Pulse Resp BP Pulse Ox 98.6 F 77 18 166/79 96 08/18/20 07:02 08/18/20 07:02 08/18/20 07:02 08/18/20 07:02 08/18/20 07:02 Period Temp Pulse Resp BP Sys/Crow Pulse Ox Last 24 Hr 97.5 F-99.2 F 55-81 16-20 133-184/60-95 94-99 Intake and Output 08/17/20 08/18/20 08/18/20 21:59 05:59 13:59 Intake Total 250 1300 290 Output Total 376 400 150 Balance -126 900 140 Weight 130.861 kg Alert oriented Nonlabored breathing Morbidly obese No anxiety Intake & Output: Intake & Output 08/17/20 08/18/20 08/18/20 21:59 05:59 13:59 Intake Total 250 1300 290 Output Total 376 400 150 Balance -126 900 140 Weight 130.861 kg Intake: IV 1000 50 Sodium Chloride 0.9% 1,000 ml @ 1000 50 mls/hr IV .Q20H [place] Rx#: [id number] Rocephin 2 gm In Dextrose 5% in 50 Water 50 ml @ 100 mls/hr IV DAILY [place] Rx#:[id number] Oral 250 300 240 Output: Void Amount 375 400 150 # of times incontinent of urine 1 Other: Meal Dinner Breakfast Percent of Meal Consumed 100% 100% Feeding Ability Independent Independent Urine Appearance Clear Clear Clear Urine Color Dark Yellow Dark Yellow Dark Yellow Urine Odor Normal OBJ DATA Labs CBC & Chem 7: 08/18/20 05:39 08/18/20 05:38 Labs: Abnormal Lab Results 08/18/20 08/18/20 08/17/20 05:39 05:38 05:12 RBC 3.65 L Hgb 11.3 L Hct 33.2 L Plt Count 96 L MPV 11.7 H Neut % (Auto) Lymph % (Auto) 14.7 L Lymph # (Auto) 0.90 L Seg Neutrophils % Lymphocytes % Absolute Neutrophils Platelet Estimate RBC Morphology Polychromasia D-Dimer Glucose 139 H 135 H Calcium 7.7 L 7.7 L Phosphorus 2.2 L 2.0 L Total Bilirubin Lactate Dehydrogenase 259 H Total Protein 5.2 L 5.1 L Albumin 2.7 L 2.6 L Triglycerides 150 H 161 H Procalcitonin Urine Appearance Urine Protein Urine Mucus 08/17/20 08/16/20 08/16/20 05:12 05:43 05:43 RBC 3.46 L 3.65 L Hgb 10.8 L 11.4 L Hct 31.5 L 33.0 L Plt Count 95 L 108 L MPV 11.6 H 11.4 H Neut % (Auto) 88.6 H Lymph % (Auto) 6.2 L Lymph # (Auto) 0.99 L 0.62 L Seg Neutrophils % Lymphocytes % Absolute Neutrophils 8.90 H Platelet Estimate RBC Morphology Polychromasia D-Dimer Glucose 132 H Calcium 8.0 L Phosphorus Total Bilirubin Lactate Dehydrogenase 296 H Total Protein 5.5 L Albumin 3.0 L Triglycerides Procalcitonin Urine Appearance Urine Protein Urine Mucus 08/15/20 08/15/20 08/15/20 13:16 12:06 12:06 RBC Hgb Hct Plt Count MPV Neut % (Auto) Lymph % (Auto) Lymph # (Auto) Seg Neutrophils % Lymphocytes % Absolute Neutrophils Platelet Estimate RBC Morphology Polychromasia D-Dimer 0.57 H Glucose Calcium Phosphorus Total Bilirubin Lactate Dehydrogenase Total Protein Albumin Triglycerides Procalcitonin 1.01 H Urine Appearance Hazy A Urine Protein >=500 A Urine Mucus Few A 08/15/20 08/15/20 12:06 12:06 RBC 4.08 L Hgb 13.0 L Hct 36.5 L Plt Count 112 L MPV 11.1 H Neut % (Auto) Lymph % (Auto) Lymph # (Auto) Seg Neutrophils % 91 H Lymphocytes % 7 L Absolute Neutrophils Platelet Estimate Decreased A RBC Morphology Abnormal A Polychromasia 1+ A D-Dimer Glucose 149 H Calcium 8.4 L Phosphorus Total Bilirubin 1.1 H Lactate Dehydrogenase Total Protein Albumin Triglycerides Procalcitonin Urine Appearance Urine Protein Urine Mucus Meds: Medications Acetaminophen (Acetaminophen 325 Mg Tablet) 650 mg PO Q4-6HP PRN; Protocol PRN Reason: Per Pain Protocol/Fever > 101 Allopurinol (Allopurinol 100 Mg Tablet) 100 mg PO TID [place] Last Admin: 08/18/20 10:00 Dose: 100 mg Documented by: Bisacodyl (Bisacodyl 10 Mg Supp.Rect) 10 mg [place] Q2-3DAYS PRN PRN Reason: Constipation Diltiazem HCl (Diltiazem 180 Mg Cap.Xl.24h) 180 mg PO QHS [facility] Last Admin: 08/17/20 20:16 Dose: 180 mg Documented by: Docusate Sodium (Docusate Sodium 100 Mg Capsule) 100 mg PO BID [facility] Last Admin: 08/18/20 09:15 Dose: 100 mg Documented by: Heparin Sodium (Porcine) (Heparin 5,000 Unit/Ml Vial) 5,000 unit SQ Q12 [facility] Last Admin: 08/18/20 09:15 Dose: 5,000 unit Documented by: Hydrochlorothiazide (Hydrochlorothiazide 12.5 Mg Capsule) 12.5 mg PO DAILY [facility] Last Admin: 08/18/20 09:11 Dose: 12.5 mg Documented by: Acetaminophen (Ofirmev) 650 mg in 65 mls @ 130 mls/hr IV Q6HP PRN; Protocol PRN Reason: Per Pain Protocol/Fever > 101 Ceftriaxone Sodium 2 gm/ (Dextrose) 50 mls @ 100 mls/hr IV DAILY [facility]; Protocol Last Infusion: 08/18/20 09:57 Dose: Infused Documented by: Magnesium Sulfate (Magnesium Sulfate) 2 gm in 50 mls @ 50 mls/hr IV UD PRN PRN Reason: MG = or < 1.7 Potassium Chloride 40 meq/ (Dextrose) 520 mls @ 130 mls/hr IV UD PRN PRN Reason: K+ = or < 3.5 Iron Carb/Multivit/[place]/Folic Acid (Multivit,Ther Iron,Ca,Fa & Min 1 Tablet) 1 tab PO DAILY [facility] Last Admin: 08/18/20 09:12 Dose: 1 tab Documented by: Losartan Potassium (Losartan 50 Mg Tablet) 100 mg PO DAILY [facility] Last Admin: 08/18/20 09:10 Dose: 100 mg Documented by: Magnesium Oxide (Magnesium Oxide 400 Mg Tablet) 400 mg PO QDAY [facility] Last Admin: 08/18/20 09:12 Dose: 400 mg Documented by: Melatonin (Melatonin 3 Mg Tablet) 3 mg PO HSP PRN PRN Reason: Insomnia Niacin (Niacin 250 Mg Cap.Sr.12h) 500 mg PO QAM [facility] Last Admin: 08/18/20 09:14 Dose: 500 mg Documented by: Ondansetron HCl (Ondansetron 4 Mg Odt Tablet) 4 mg SL Q4-6HP PRN; Protocol PRN Reason: Nausea And Vomiting Ondansetron HCl (Ondansetron 4 Mg/2 Ml Vial) 4 mg IV Q4-6HP PRN; Protocol PRN Reason: Nausea And Vomiting Garlic Extract 500 (Mg Cap) 2 dose PO QDAY [facility] Last Admin: 08/18/20 09:17 Dose: Not Given Documented by: Polyethylene Glycol (Polyethylene Glycol 3350 17 Gm Packet) 17 gm PO DAILYP PRN PRN Reason: Constipation Potassium Chloride (Potassium Chloride 20 Meq Packet) 40 meq PO DAILYP PRN PRN Reason: K+ < 3.5 Senna/Docusate Sodium (Sennosides/Docusate Sodium 1 Tab Tablet) 1 tab PO HS [facility] Last Admin: 08/17/20 21:17 Dose: Not Given Documented by: Sodium Chloride (0.9 % Sodium Chloride 10 Ml Syringe) 10 ml IV Q8 [facility] Last Admin: 08/18/20 04:53 Dose: Not Given Documented by: Tamsulosin HCl (Tamsulosin 0.4 Mg Capsule) 0.4 mg PO QDAY [facility] Last Admin: 08/18/20 09:11 Dose: 0.4 mg Documented by: A/P Narrative A/P Narrative: * Streptococcus agalactiae bacteremia-repeat surveillance cultures positive. Continue antibiotic coverage Rocephin. ID consulted. CT sinuses today, echocardiogram EF 66%. No evidence of valvular vegetation. * Sepsis secondary above. Clinical improvement noted on management per guidelines. White count normalized. * Weakness/dyspnea and myalgia likely secondary to bacteremia. Clinically improving. * History of hypertension on home dose diltiazem/losartan/atenolol with holding parameters * BPH continue home dose Flomax * History of CKD managed by Dr. Diaz outpatient nephrology. Creatinine at baseline * Gout continue allopurinol * Full code * Prophylax Heparin Plan * Continue surveillance cultures * Surveillance cultures * Continue Rocephin * Pre-existing medical condition management as above * PT OT nutrition support * Discharge planning based on further investigation. Time Spent With Patient Time: Total time spent is greater than 50% in coordination of care (as documented) at patient's floor/unit and/or counseling patient:
--- NOTE | 2020-08-18 11:42 | Cat Scan Report ---
CLINICAL INFORMATION: Bacteremia COMPARISON: None. TECHNIQUE: 2.5 mm helical slices were obtained from the inferior maxillary sinuses through the frontal sinuses. Axial and coronal reformatted images were processed and reviewed at bone and soft tissue windows.The exam was performed using radiation dose optimization techniques including, but not limited to, automated exposure control, adjustment of the mA and/or kV according to patient size and use of iterative reconstruction technique. FINDINGS: Right frontal sinus congenitally absent. Left frontal sinus is normal. There is moderate mucosal thickening in the inferior maxillary sinuses and mild mucosal thickening in the right sphenoid sinus. Moderate scattered mucosal thickening present in the anterior and posterior ethmoid air cells. Marked rightward nasal septal deviation with a spur extending across the right lateral nasal cavity to touch the inferior right turbinate. Moderate mucosal thickening present in the nasal septum, and turbinates compatible with rhinitis. The infundibulum of both anterior ostiomeatal complexes are narrowed by ethmoid bullae which may impede maxillary sinus drainage The orbits and petrous temporal regions are normal. There is mild degenerative change in both TMJs. IMPRESSION: 1. Moderate bilateral maxillary and mild bilateral ethmoid and right sphenoid sinusitis. Right frontal sinus congenitally absent. 2. Moderate rhinitis. 3. Marked rightward nasal septal deviation with spur extending across the right lateral nasal cavity to touch the inferior turbinate. This can be an independent cause for headaches. 4. Mild narrowing of the infundibulum both anterior osteochondral complex due to ethmoid bullae. This may in the maxillary sinus drainage. 5. Mild degeneration - both TMJs 6. Buckling procedure right ocular globe. Right lens is not identified and may be absent. Interpreted and Authenticated by: Torrey Alfredo 08/18/20
[2020-08-18] MEDS: DILTIAZEM 180 MG CAP.XL.24H PO SCH (20:15)
[2020-08-18] MEDS: SENNOSIDES/DOCUSATE SODIUM 1 TAB TABLET PO SCH (20:15)
[2020-08-18] MEDS: ACETAMINOPHEN 325 MG TABLET PO PRN (20:16)
[2020-08-19] MEDS: ACETAMINOPHEN 325 MG TABLET PO PRN ×2 (02:57→19:46)
[2020-08-19] MEDS: POLYETHYLENE GLYCOL 3350 17 GM PACKET PO PRN ×2 (04:46→13:53)
[2020-08-19 06:22] LABS: Basophils # (Auto) 0.02 K/mcL (0.00-0.20); Basophils % (Auto) 0.3 % (0.0-2.0); Eosinophils # (Auto) 0.13 K/mcL (0.00-0.70); Hemoglobin 10.9 g/dL (13.5-16.5); Lymphocytes # (Auto) 1.18 K/mcL (1.50-4.80); Lymphocytes % (Auto) 18.1 % (15.0-49.0); Mean Cell Volume 90.9 fL (80.0-100.0); Mean Corpuscular HGB Conc 34.1 g/dL (31.0-36.0); Mean Platelet Volume 10.9 fL (7.4-10.4); Monocytes # (Auto) 0.65 K/mcL (0.10-0.90); Neutrophils % (Auto) 69.6 % (38.0-78.0); Platelet Count 127 K/mcL (140-440); RBC 3.52 M/mcL (4.50-5.90); Red Cell Distribution Width 13.2 % (11.5-14.5); WBC 6.5 K/mcL (4.5-11.0)
[2020-08-19] MEDS: 0.9 % SODIUM CHLORIDE 10 ML SYRINGE IV SCH ×3 (06:24→20:55)
[2020-08-19] MEDS: LOSARTAN 50 MG TABLET PO SCH ×2 (06:45→07:04)
[2020-08-19] MEDS: HYDROCHLOROTHIAZIDE 12.5 MG CAPSULE PO SCH ×2 (06:45→07:04)
[2020-08-19] MEDS: ALLOPURINOL 100 MG TABLET PO SCH ×4 (06:45→20:54)
[2020-08-19 06:53] LABS: ALT/SGPT 10 U/L (<40); AST/SGOT 22 U/L (<40); Albumin/Globulin Ratio 1.2 (1.0-2.3); Alkaline Phosphatase 66 U/L (39-117); Bilirubin,Direct 0.2 mg/dL (<0.3); Bilirubin,Total 0.6 mg/dL (0.1-1.0); Blood Urea Nitrogen 12 mg/dL (8-23); Calcium 8.2 mg/dL (8.6-10.4); Carbon Dioxide 25 mmol/L (22-30); Chloride 103 mmol/L (96-108); Globulin 2.6 gm/dL (2.2-3.7); Glomerular Filtration Rate 86; Glucose 153 mg/dL (70-105); Lactate Dehydrogenase 252 U/L (135-225); Phosphorous 2.6 mg/dL (2.5-4.5); Triglycerides 137 mg/dL (<150); Uric Acid 4.2 mg/dL (2.5-8.0)
[2020-08-19] MEDS: GARLIC EXTRACT PO SCH (07:04)
[2020-08-19] MEDS: HEPARIN 5,000 UNIT/ML VIAL SQ SCH ×2 (07:59→20:53)
[2020-08-19] MEDS: hydrALAZINE 20 MG/ML VIAL IV PRN ×2 (07:59→19:45)
[2020-08-19] MEDS: DOCUSATE SODIUM 100 MG CAPSULE PO SCH ×2 (08:00→20:54)
[2020-08-19] MEDS: NIACIN 250 MG CAP.SR.12H PO SCH (08:00)
[2020-08-19] MEDS: MAGNESIUM OXIDE 400 MG TABLET PO SCH (08:00)
[2020-08-19] MEDS: MULTIVIT,THER IRON,CA,FA & MIN 1 TABLET PO SCH (08:00)
[2020-08-19] MEDS ORDERED: hydrALAZINE 20 MG/ML VIAL IV SCH (08:00)
[2020-08-19] MEDS: TAMSULOSIN 0.4 MG CAPSULE PO SCH (08:00)
[2020-08-19] MEDS ORDERED: HYDROCHLOROTHIAZIDE 12.5 MG CAPSULE PO SCH (09:00)
[2020-08-19] MEDS: amLODIPine 5 MG TABLET PO SCH (09:12)
[2020-08-19] MEDS: cefTRIAXone 2 GM in DEXTROSE 5% IN WATER 50 ML IV SCH (09:12)
[2020-08-19] MEDS ORDERED: HYDROCHLOROTHIAZIDE 12.5 MG CAPSULE PO ONE (09:15)
--- NOTE | 2020-08-19 09:58 | Internal Med Progress Note ---
SUBJECTIVE Subjective Patient information: Note initiated : 08/19/20 at 9:52 am Service Date, if different from initiated Date: [] Patient: Gustavo Menendez a 69 y/o M admitted on 08/15/20 for shortness of breath, n/v, fever, chills. Chief Complaint: [] Interval history: History of present illness: Mr. Menendez is a 69 year old M with a history of CKD stage III/HTN/gout who presents to the ER with 5 days onset of gradually progressive weakness, chills, myalgias along with associated dyspnea. Patient symptom has progressed to the point he is not been able to function. He lives with his Jazmín and sees primary care physician Yumi. He denies exposure to sick contacts/bloody stool/productive cough/joint pain or rash. He denies changes in medications. He received his Covid vaccine 07/23. Initial work-up the ER was consistent SIRS with a fever of 102.4. Blood culture was drawn/CTA chest negative for PE. Antibiotics were initiated. Hospital service was consulted in light of above. At the time of my evaluation patient is alert and oriented. He was able to answer most of the question and talk in full sentences. He endorses to history as above. He denies syncopal episode/hemoptysis/weight loss/abdominal pain. 08/16-GPC bacteremia on blood cultures. Started on vancomycin. Echocardiogram ordered. Surveillance blood cultures. White count stable. Fever defervesced. Unclear source. Consider ID consult if persistent bacteremia and no identifiable source. White count 10,000, creatinine 1.1. No overnight events. No additional concerns expressed by nursing staff. 08/17-strep agalactiae on blood cultures. Repeat cultures pending. White count stable. Afebrile. Stable renal function. at bedside. Doing well. No overnight events. Blood pressures systolics around 150. Started on home dose YOUSIF inhibitor. Ongoing therapies. Antibiotics deescalated to Rocephin from Zosyn and vancomycin. 08/18-repeat blood cultures positive for gram-positive cocci. Echocardiogram performed. ID consulted. Recommends CT sinuses. No obvious source of infection. White count stable. On Rocephin. Duration of antibiotics will be determined based on surveillance cultures results. at bedside. No other concerns pain fever shortness of breath. 3/13-patient doing well. Surveillance cultures negative so far. Echocardiogram no evidence of vegetation. EF 66% white count 6.5. Systolics elevated last night and hence thiazide dose increased to 25 and added amlodipine. This morning systolics 160s. at bedside. Discussed treatment plan. No obvious source identified. CTs scan sinuses reveals extensive sinusitisInvolving maxillary and bilateral ethmoid and sphenoid. Will need outpatient ENT follow- up for chronic management of sinusitis. On antibiotic coverage at this time Constitutional Vitals: Vital Signs Temp Pulse Resp BP Pulse Ox 97.8 F 93 H 18 167/87 96 08/19/20 06:38 08/19/20 09:03 08/19/20 06:38 08/19/20 09:03 08/19/20 06:38 Period Temp Pulse Resp BP Sys/Crow Pulse Ox Last 24 Hr 97.7 F-100.6 F 63-93 18-24 150-193/67-97 93-97 Intake and Output 08/18/20 08/19/20 08/19/20 21:59 05:59 13:59 Intake Total 027 820 5208 Output Total 1200 1000 650 Balance -680 -30 1510 Weight 136.395 kg Alert oriented Nonlabored breathing Nondistended abdomen No anxiety Intake & Output: Intake & Output 08/18/20 08/19/20 08/19/20 21:59 05:59 13:59 Intake Total 703 922 2091 Output Total 1200 1000 650 Balance -680 -30 1510 Weight 136.395 kg Intake: IV 520 1000 Sodium Chloride 0.9% 1,000 ml @ 1000 50 mls/hr IV .Q20H [place] Rx#: [id number] Potassium Chloride 40 Meq In 520 Dextrose 5% in Water 500 ml @ 130 mls/hr IV UD PRN Rx#: [id number] Oral 970 1160 Output: Urine Catheter Amount 300 Void Amount 900 1000 650 Other: Meal Breakfast Percent of Meal Consumed 100% Feeding Ability Independent Urine Appearance Clear Clear Clear Urine Color Dark Yellow Dark Yellow Bright Yellow OBJ DATA Labs CBC & Chem 7: 08/19/20 05:17 08/19/20 05:17 Labs: Abnormal Lab Results 08/19/20 08/19/20 08/18/20 05:17 05:17 05:39 RBC 3.52 L 3.65 L Hgb 10.9 L 11.3 L Hct 32.0 L 33.2 L Plt Count 127 L 96 L MPV 10.9 H 11.7 H Lymph % (Auto) 14.7 L Lymph # (Auto) 1.18 L 0.90 L Glucose 153 H Calcium 8.2 L Phosphorus Lactate Dehydrogenase 252 H Total Protein 5.6 L Albumin 3.0 L Triglycerides 08/18/20 08/17/20 08/17/20 05:38 05:12 05:12 RBC 3.46 L Hgb 10.8 L Hct 31.5 L Plt Count 95 L MPV 11.6 H Lymph % (Auto) Lymph # (Auto) 0.99 L Glucose 139 H 135 H Calcium 7.7 L 7.7 L Phosphorus 2.2 L 2.0 L Lactate Dehydrogenase 259 H Total Protein 5.2 L 5.1 L Albumin 2.7 L 2.6 L Triglycerides 150 H 161 H Meds: Medications Acetaminophen (Acetaminophen 325 Mg Tablet) 650 mg PO Q4-6HP PRN; Protocol PRN Reason: Per Pain Protocol/Fever > 101 Last Admin: 08/19/20 02:57 Dose: 650 mg Documented by: Allopurinol (Allopurinol 100 Mg Tablet) 100 mg PO TID [facility] Last Admin: 08/19/20 07:05 Dose: Not Given Documented by: Amlodipine Besylate (Amlodipine 5 Mg Tablet) 5 mg PO DAILY [facility] Last Admin: 08/19/20 09:12 Dose: 5 mg Documented by: Bisacodyl (Bisacodyl 10 Mg Supp.Rect) 10 mg [place] Q2-3DAYS PRN PRN Reason: Constipation Diltiazem HCl (Diltiazem 180 Mg Cap.Xl.24h) 180 mg PO QHS [facility] Last Admin: 08/18/20 20:15 Dose: 180 mg Documented by: Docusate Sodium (Docusate Sodium 100 Mg Capsule) 100 mg PO BID [facility] Last Admin: 08/19/20 08:00 Dose: 100 mg Documented by: Heparin Sodium (Porcine) (Heparin 5,000 Unit/Ml Vial) 5,000 unit SQ Q12 [facility] Last Admin: 08/19/20 07:59 Dose: 5,000 unit Documented by: Hydralazine HCl (Hydralazine 20 Mg/Ml Vial) 10 mg IV Q4HP PRN PRN Reason: SBP>160 Last Admin: 08/19/20 07:59 Dose: 10 mg Documented by: Hydrochlorothiazide (Hydrochlorothiazide 25 Mg Tablet) 25 mg PO DAILY [facility] Acetaminophen (Ofirmev) 650 mg in 65 mls @ 130 mls/hr IV Q6HP PRN; Protocol PRN Reason: Per Pain Protocol/Fever > 101 Ceftriaxone Sodium 2 gm/ (Dextrose) 50 mls @ 100 mls/hr IV DAILY [facility]; Protocol Last Admin: 08/19/20 09:12 Dose: 100 mls/hr Documented by: Magnesium Sulfate (Magnesium Sulfate) 2 gm in 50 mls @ 50 mls/hr IV UD PRN PRN Reason: MG = or < 1.7 Potassium Chloride 40 meq/ (Dextrose) 520 mls @ 130 mls/hr IV UD PRN PRN Reason: K+ = or < 3.5 Last Infusion: 08/18/20 18:00 Dose: Infused Documented by: Iron Carb/Multivit/Fiber Product Cutting Machine Operator/Folic Acid (Multivit,Ther Iron,Ca,Fa & Min 1 Tablet) 1 tab PO DAILY [facility] Last Admin: 08/19/20 08:00 Dose: 1 tab Documented by: Losartan Potassium (Losartan 50 Mg Tablet) 100 mg PO DAILY [facility] Last Admin: 08/19/20 07:04 Dose: Not Given Documented by: Magnesium Oxide (Magnesium Oxide 400 Mg Tablet) 400 mg PO QDAY [facility] Last Admin: 08/19/20 08:00 Dose: 400 mg Documented by: Melatonin (Melatonin 3 Mg Tablet) 3 mg PO HSP PRN PRN Reason: Insomnia Niacin (Niacin 250 Mg Cap.Sr.12h) 500 mg PO QAM [facility] Last Admin: 08/19/20 08:00 Dose: 500 mg Documented by: Ondansetron HCl (Ondansetron 4 Mg Odt Tablet) 4 mg SL Q4-6HP PRN; Protocol PRN Reason: Nausea And Vomiting Ondansetron HCl (Ondansetron 4 Mg/2 Ml Vial) 4 mg IV Q4-6HP PRN; Protocol PRN Reason: Nausea And Vomiting Garlic Extract 500 (Mg Cap) 2 dose PO QDAY [facility] Last Admin: 08/19/20 07:04 Dose: Not Given Documented by: Polyethylene Glycol (Polyethylene Glycol 3350 17 Gm Packet) 17 gm PO DAILYP PRN PRN Reason: Constipation Last Admin: 08/19/20 04:46 Dose: 17 gm Documented by: Potassium Chloride (Potassium Chloride 20 Meq Packet) 40 meq PO DAILYP PRN PRN Reason: K+ < 3.5 Senna/Docusate Sodium (Sennosides/Docusate Sodium 1 Tab Tablet) 1 tab PO HS [facility] Last Admin: 08/18/20 20:15 Dose: 1 tab Documented by: Sodium Chloride (0.9 % Sodium Chloride 10 Ml Syringe) 10 ml IV Q8 [facility] Last Admin: 08/19/20 06:24 Dose: Not Given Documented by: Tamsulosin HCl (Tamsulosin 0.4 Mg Capsule) 0.4 mg PO QDAY [facility] Last Admin: 08/19/20 08:00 Dose: 0.4 mg Documented by: A/P Assessment and plan (1) Bacteremia due to group B Streptococcus: Status: Acute Narrative A/P Narrative: * Streptococcus agalactiae bacteremia-repeat surveillance cultures positive for micrococcus. Subsequent surveillance cultures negative. Continue Rocephin. ID consulted. CT sinuses reveals extensive maxillary/ethmoid and sphenoid sinusitis, echocardiogram EF 66%. No evidence of valvular vegetation. * Sepsis secondary to above. Clinical resolution noted. * Weakness/dyspnea and myalgia likely secondary to bacteremia. Clinically improving. * Suboptimally controlled hypertension. Increased dose of thiazide and added amlodipine. continue home dose diltiazem/losartan * BPH continue home dose Flomax * History of CKD managed by Dr. Diaz outpatient nephrology. Creatinine at baseline * Gout continue allopurinol * Full code * Prophylax Heparin Plan * Continue Rocephin * Add amlodipine * Pre-existing medical condition management as above * PT OT nutrition support * Discharge planning based on further investigation. Time Spent With Patient Time: Total time spent is greater than 50% in coordination of care (as documented) at patient's floor/unit and/or counseling patient:
[2020-08-19] MEDS: SENNOSIDES/DOCUSATE SODIUM 1 TAB TABLET PO SCH (20:53)
[2020-08-19] MEDS: DILTIAZEM 180 MG CAP.XL.24H PO SCH (20:54)
[2020-08-20] MEDS: hydrALAZINE 20 MG/ML VIAL IV PRN ×3 (00:15→19:37)
[2020-08-20] MEDS: ACETAMINOPHEN 325 MG TABLET PO PRN ×2 (00:16→05:01)
[2020-08-20] MEDS: 0.9 % SODIUM CHLORIDE 10 ML SYRINGE IV SCH ×3 (05:04→21:27)
[2020-08-20 07:01] LABS: Basophils # (Auto) 0.03 K/mcL (0.00-0.20); Basophils % (Auto) 0.5 % (0.0-2.0); Eosinophils # (Auto) 0.18 K/mcL (0.00-0.70); Eosinophils % (Auto) 2.9 % (0.0-7.0); Hematocrit 36.3 % (41.0-55.0); Hemoglobin 12.4 g/dL (13.5-16.5); Lymphocytes # (Auto) 1.36 K/mcL (1.50-4.80); Lymphocytes % (Auto) 21.8 % (15.0-49.0); Mean Cell Volume 90.5 fL (80.0-100.0); Mean Corpuscular HGB Conc 34.2 g/dL (31.0-36.0); Mean Platelet Volume 10.9 fL (7.4-10.4); Monocytes # (Auto) 0.48 K/mcL (0.10-0.90); Monocytes % (Auto) 7.7 % (1.0-12.0); Neutrophils % (Auto) 67.1 % (38.0-78.0); Platelet Count 158 K/mcL (140-440); RBC 4.01 M/mcL (4.50-5.90); Red Cell Distribution Width 13.1 % (11.5-14.5); WBC 6.3 K/mcL (4.5-11.0)
[2020-08-20 07:21] LABS: ALT/SGPT 20 U/L (<40); AST/SGOT 35 U/L (<40); Alkaline Phosphatase 74 U/L (39-117); Bilirubin,Direct 0.2 mg/dL (<0.3); Bilirubin,Total 0.7 mg/dL (0.1-1.0); Blood Urea Nitrogen 11 mg/dL (8-23); Calcium 8.7 mg/dL (8.6-10.4); Carbon Dioxide 24 mmol/L (22-30); Chloride 99 mmol/L (96-108); Globulin 3.1 gm/dL (2.2-3.7); Glomerular Filtration Rate 86; Glucose 146 mg/dL (70-105); Lactate Dehydrogenase 269 U/L (135-225); Phosphorous 3.1 mg/dL (2.5-4.5); Triglycerides 174 mg/dL (<150); Uric Acid 4.5 mg/dL (2.5-8.0)
[2020-08-20] MEDS: GARLIC EXTRACT PO SCH (08:59)
[2020-08-20] MEDS: HEPARIN 5,000 UNIT/ML VIAL SQ SCH ×2 (09:22→21:27)
[2020-08-20] MEDS: ALLOPURINOL 100 MG TABLET PO SCH ×3 (09:23→21:27)
[2020-08-20] MEDS: LOSARTAN 50 MG TABLET PO SCH (09:23)
[2020-08-20] MEDS: MAGNESIUM OXIDE 400 MG TABLET PO SCH (09:23)
[2020-08-20] MEDS: TAMSULOSIN 0.4 MG CAPSULE PO SCH (09:23)
[2020-08-20] MEDS: NIACIN 250 MG CAP.SR.12H PO SCH (09:24)
[2020-08-20] MEDS: DOCUSATE SODIUM 100 MG CAPSULE PO SCH ×2 (09:24→21:26)
[2020-08-20] MEDS: amLODIPine 5 MG TABLET PO SCH (09:24)
[2020-08-20] MEDS: MULTIVIT,THER IRON,CA,FA & MIN 1 TABLET PO SCH (09:24)
[2020-08-20] MEDS: cefTRIAXone 2 GM in DEXTROSE 5% IN WATER 50 ML IV SCH (09:24)
[2020-08-20] MEDS: HYDROCHLOROTHIAZIDE 25 MG TABLET PO SCH (09:24)
--- NOTE | 2020-08-20 12:06 | Internal Med Progress Note ---
SUBJECTIVE Subjective Patient information: Note initiated : 08/20/20 at 12:01 pm Service Date, if different from initiated Date: [] Patient: Gustavo Menendez a 69 y/o M admitted on 08/15/20 for shortness of breath, n/v, fever, chills. Chief Complaint: [] Interval history: History of present illness: Mr. Menendez is a 69 year old M with a history of CKD stage III/HTN/gout who presents to the ER with 5 days onset of gradually progressive weakness, chills, myalgias along with associated dyspnea. Patient symptom has progressed to the point he is not been able to function. He lives with his Jazmín and sees primary care physician Yumi. He denies exposure to sick contacts/bloody stool/productive cough/joint pain or rash. He denies changes in medications. He received his Covid vaccine 07/23. Initial work-up the ER was consistent SIRS with a fever of 102.4. Blood culture was drawn/CTA chest negative for PE. Antibiotics were initiated. Hospital service was consulted in light of above. At the time of my evaluation patient is alert and oriented. He was able to answer most of the question and talk in full sentences. He endorses to history as above. He denies syncopal episode/hemoptysis/weight loss/abdominal pain. 08/16-GPC bacteremia on blood cultures. Started on vancomycin. Echocardiogram ordered. Surveillance blood cultures. White count stable. Fever defervesced. Unclear source. Consider ID consult if persistent bacteremia and no identifiable source. White count 10,000, creatinine 1.1. No overnight events. No additional concerns expressed by nursing staff. 08/17-strep agalactiae on blood cultures. Repeat cultures pending. White count stable. Afebrile. Stable renal function. at bedside. Doing well. No overnight events. Blood pressures systolics around 150. Started on home dose YOUSIF inhibitor. Ongoing therapies. Antibiotics deescalated to Rocephin from Zosyn and vancomycin. 08/18-repeat blood cultures positive for gram-positive cocci. Echocardiogram performed. ID consulted. Recommends CT sinuses. No obvious source of infection. White count stable. On Rocephin. Duration of antibiotics will be determined based on surveillance cultures results. at bedside. No other concerns pain fever shortness of breath. 08/19-patient doing well. Surveillance cultures negative so far. Echocardiogram no evidence of vegetation. EF 66% white count 6.5. Systolics elevated last night and hence thiazide dose increased to 25 and added amlodipine. This morning systolics 160s. at bedside. Discussed treatment plan. No obvious source identified. CTs scan sinuses reveals extensive sinusitisInvolving maxillary and bilateral ethmoid and sphenoid. Will need outpatient ENT follow-up for chronic management of sinusitis. On antibiotic coverage at this time 08/20-patient doing well. No overnight events. No concerns per staff. Cultures negative so far. Will be placed PICC line in 24 hours and discharged on IV Rocephin. Duration to be determined based on ID recommendations. Stable white count. Systolics improved around 150s following increasing dose of thiazide/amlodipine 5 Constitutional Vitals: Vital Signs Temp Pulse Resp BP Pulse Ox 97.1 F 67 22 157/86 96 08/20/20 11:20 08/20/20 11:20 08/20/20 11:20 08/20/20 11:20 08/20/20 11:20 Period Temp Pulse Resp BP Sys/Crow Pulse Ox Last 24 Hr 97.1 F-100.7 F 60-96 16-24 138-189/71-97 94-98 Intake and Output 08/19/20 08/20/20 08/20/20 20:59 05:59 13:59 Intake Total 240 Output Total 250 Balance -10 Weight alert oriented Nonlabored breathing Nondistended abdomen No anxiety Intake & Output: Intake & Output 08/19/20 08/20/20 08/20/20 20:59 05:59 13:59 Intake Total 240 Output Total 250 Balance -10 Weight Intake: Oral 240 Output: Void Amount 250 Other: Meal Breakfast Percent of Meal Consumed 100% Feeding Ability Independent Urine Appearance Clear Urine Color Bright Yellow Stool Size Large Stool Color Brown Stool Consistency Soft Formed OBJ DATA Labs CBC & Chem 7: 08/20/20 05:39 08/20/20 05:39 Labs: Abnormal Lab Results 08/20/20 08/20/20 08/19/20 05:39 05:39 05:17 RBC 4.01 L Hgb 12.4 L Hct 36.3 L Plt Count MPV 10.9 H Lymph % (Auto) Lymph # (Auto) 1.36 L Glucose 146 H 153 H Calcium 8.2 L Phosphorus Lactate Dehydrogenase 269 H 252 H Total Protein 5.6 L Albumin 3.0 L 3.0 L Triglycerides 174 H 08/19/20 08/18/20 08/18/20 05:17 05:39 05:38 RBC 3.52 L 3.65 L Hgb 10.9 L 11.3 L Hct 32.0 L 33.2 L Plt Count 127 L 96 L MPV 10.9 H 11.7 H Lymph % (Auto) 14.7 L Lymph # (Auto) 1.18 L 0.90 L Glucose 139 H Calcium 7.7 L Phosphorus 2.2 L Lactate Dehydrogenase Total Protein 5.2 L Albumin 2.7 L Triglycerides 150 H Meds: Medications Acetaminophen (Acetaminophen 325 Mg Tablet) 650 mg PO Q4-6HP PRN; Protocol PRN Reason: Per Pain Protocol/Fever > 101 Last Admin: 08/20/20 05:01 Dose: 650 mg Documented by: Allopurinol (Allopurinol 100 Mg Tablet) 100 mg PO TID [facility] Last Admin: 08/20/20 09:23 Dose: 100 mg Documented by: Amlodipine Besylate (Amlodipine 5 Mg Tablet) 5 mg PO DAILY [facility] Last Admin: 08/20/20 09:24 Dose: 5 mg Documented by: Bisacodyl (Bisacodyl 10 Mg Supp.Rect) 10 mg [place] Q2-3DAYS PRN PRN Reason: Constipation Diltiazem HCl (Diltiazem 180 Mg Cap.Xl.24h) 180 mg PO QHS [facility] Last Admin: 08/19/20 20:54 Dose: 180 mg Documented by: Docusate Sodium (Docusate Sodium 100 Mg Capsule) 100 mg PO BID [facility] Last Admin: 08/20/20 09:24 Dose: 100 mg Documented by: Heparin Sodium (Porcine) (Heparin 5,000 Unit/Ml Vial) 5,000 unit SQ Q12 [facility] Last Admin: 08/20/20 09:22 Dose: 5,000 unit Documented by: Hydralazine HCl (Hydralazine 20 Mg/Ml Vial) 10 mg IV Q4HP PRN PRN Reason: SBP>160 Last Admin: 08/20/20 09:23 Dose: 10 mg Documented by: Hydrochlorothiazide (Hydrochlorothiazide 25 Mg Tablet) 25 mg PO DAILY [facility] Last Admin: 08/20/20 09:24 Dose: 25 mg Documented by: Acetaminophen (Ofirmev) 650 mg in 65 mls @ 130 mls/hr IV Q6HP PRN; Protocol PRN Reason: Per Pain Protocol/Fever > 101 Ceftriaxone Sodium 2 gm/ (Dextrose) 50 mls @ 100 mls/hr IV DAILY [facility]; Protocol Last Admin: 08/20/20 09:24 Dose: 100 mls/hr Documented by: Magnesium Sulfate (Magnesium Sulfate) 2 gm in 50 mls @ 50 mls/hr IV UD PRN PRN Reason: MG = or < 1.7 Potassium Chloride 40 meq/ (Dextrose) 520 mls @ 130 mls/hr IV UD PRN PRN Reason: K+ = or < 3.5 Last Infusion: 08/18/20 18:00 Dose: Infused Documented by: Iron Carb/Multivit/[place]/Folic Acid (Multivit,Ther Iron,Ca,Fa & Min 1 Tablet) 1 tab PO DAILY [facility] Last Admin: 08/20/20 09:24 Dose: 1 tab Documented by: Losartan Potassium (Losartan 50 Mg Tablet) 100 mg PO DAILY [facility] Last Admin: 08/20/20 09:23 Dose: 100 mg Documented by: Magnesium Oxide (Magnesium Oxide 400 Mg Tablet) 400 mg PO QDAY [facility] Last Admin: 08/20/20 09:23 Dose: 400 mg Documented by: Melatonin (Melatonin 3 Mg Tablet) 3 mg PO HSP PRN PRN Reason: Insomnia Niacin (Niacin 250 Mg Cap.Sr.12h) 500 mg PO QAM [facility] Last Admin: 08/20/20 09:24 Dose: 500 mg Documented by: Ondansetron HCl (Ondansetron 4 Mg Odt Tablet) 4 mg SL Q4-6HP PRN; Protocol PRN Reason: Nausea And Vomiting Ondansetron HCl (Ondansetron 4 Mg/2 Ml Vial) 4 mg IV Q4-6HP PRN; Protocol PRN Reason: Nausea And Vomiting Garlic Extract 500 (Mg Cap) 2 dose PO QDAY [facility] Last Admin: 08/20/20 08:59 Dose: Not Given Documented by: Polyethylene Glycol (Polyethylene Glycol 3350 17 Gm Packet) 17 gm PO DAILYP PRN PRN Reason: Constipation Last Admin: 08/19/20 13:53 Dose: 17 gm Documented by: Potassium Chloride (Potassium Chloride 20 Meq Packet) 40 meq PO DAILYP PRN PRN Reason: K+ < 3.5 Last Admin: 08/19/20 19:46 Dose: 40 meq Documented by: Senna/Docusate Sodium (Sennosides/Docusate Sodium 1 Tab Tablet) 1 tab PO HS [facility] Last Admin: 08/19/20 20:53 Dose: 1 tab Documented by: Sodium Chloride (0.9 % Sodium Chloride 10 Ml Syringe) 10 ml IV Q8 [facility] Last Admin: 08/20/20 05:04 Dose: 10 ml Documented by: Tamsulosin HCl (Tamsulosin 0.4 Mg Capsule) 0.4 mg PO QDAY [facility] Last Admin: 08/20/20 09:23 Dose: 0.4 mg Documented by: A/P Assessment and plan (1) Bacteremia due to group B Streptococcus: Status: Acute Narrative A/P Narrative: * Streptococcus agalactiae bacteremia-surveillance cultures negative so far. Will likely discharge in 24 hours on IV Rocephin. Place PICC line in 24 hours. Possible source sinus. CT sinuses reveals extensive maxillary/ethmoid and sphenoid sinusitis, echocardiogram EF 66%. No evidence of valvular vegetation. * Sepsis secondary to above. Clinical resolution noted. * Weakness/dyspnea and myalgia likely secondary to bacteremia. Clinically improving. * Suboptimally controlled hypertension. Increased dose of thiazide and added amlodipine. continue home dose diltiazem/losartan * BPH continue home dose Flomax * History of CKD managed by Dr. Diaz outpatient nephrology. Creatinine at baseline * Gout continue allopurinol * Full code * Prophylax Heparin Plan * Continue Rocephin * Continue increased dose thiazide/amlodipine * PICC line placement * Pre-existing medical condition management as above * PT OT nutrition support * Discharge discharge likely in 24 hours with outpatient Rocephin Time Spent With Patient Time: Total time spent is greater than 50% in coordination of care (as documented) at patient's floor/unit and/or counseling patient:
[2020-08-20] MEDS ORDERED: FUROSEMIDE 40 MG/4 ML VIAL IV ONE (14:15)
[2020-08-20] MEDS: SENNOSIDES/DOCUSATE SODIUM 1 TAB TABLET PO SCH (21:26)
[2020-08-20] MEDS: DILTIAZEM 180 MG CAP.XL.24H PO SCH (21:26)
[2020-08-21] MEDS: ACETAMINOPHEN 325 MG TABLET PO PRN (02:25)
[2020-08-21] MEDS: 0.9 % SODIUM CHLORIDE 10 ML SYRINGE IV SCH ×2 (04:44→14:35)
[2020-08-21] MEDS: GARLIC EXTRACT PO SCH (09:19)
[2020-08-21] MEDS ORDERED: 0.9 % SODIUM CHLORIDE 10 ML SYRINGE IV PRN (09:48)
[2020-08-21] MEDS: ALLOPURINOL 100 MG TABLET PO SCH ×2 (10:12→16:45)
[2020-08-21] MEDS: DOCUSATE SODIUM 100 MG CAPSULE PO SCH (10:12)
[2020-08-21] MEDS: HYDROCHLOROTHIAZIDE 25 MG TABLET PO SCH (10:12)
[2020-08-21] MEDS: NIACIN 250 MG CAP.SR.12H PO SCH (10:12)
[2020-08-21] MEDS: amLODIPine 5 MG TABLET PO SCH (10:12)
[2020-08-21] MEDS: MAGNESIUM OXIDE 400 MG TABLET PO SCH (10:12)
[2020-08-21] MEDS: TAMSULOSIN 0.4 MG CAPSULE PO SCH (10:14)
[2020-08-21] MEDS: HEPARIN 5,000 UNIT/ML VIAL SQ SCH (10:14)
[2020-08-21] MEDS: MULTIVIT,THER IRON,CA,FA & MIN 1 TABLET PO SCH (10:14)
[2020-08-21] MEDS: LOSARTAN 50 MG TABLET PO SCH (10:14)
--- NOTE | 2020-08-21 11:03 | Discharge Summary ---
Discharge Provider Provider Patient information: Note initiated : 08/21/20 at 10:59 am Service Date, if different from initiated Date: [] Patient: Gustavo Menendez a 69 y/o M admitted on 08/15/20 for shortness of breath, n/v, fever, chills. Discharge diagnosis * Streptococcus agalactiae bacteremia-surveillance cultures negative. Discharging with advised to continue Rocephin for additional 4 weeks. Continue PICC line care. Will follow up with Dr. Daniela lassiter in 3 weeks. Likely source severe sinusitis as evident on CT. Also recommend outpatient follow-up with ENT for further evaluation and treatment. Echocardiogram no evidence of valvular vegetation. * Sepsis secondary to above. Clinical resolution noted. * Severe sinusitis noted on CT. Recommend outpatient follow-up with ENT for further management. * Weakness/dyspnea and myalgia likely secondary to bacteremia. Clinically improving. * Suboptimally controlled hypertension. Increased dose of thiazide and added amlodipine. continue home dose diltiazem/losartan. Follow-up with Dr. Diaz as outpatient for further management and optimization * BPH continue home dose Flomax * History of CKD managed by Dr. Diaz outpatient nephrology. Creatinine at baseline * Gout continue allopurinol Brief hospital course History of present illness: Mr. Menendez is a 69 year old M with a history of CKD stage III/HTN/gout who presents to the ER with 5 days onset of gradually progressive weakness, chills, myalgias along with associated dyspnea. Patient symptom has progressed to the point he is not been able to function. He lives with his Jazmín and sees primary care physician Yumi. He denies exposure to sick contacts/bloody stool/productive cough/joint pain or rash. He denies changes in medications. He received his Covid vaccine 07/23. Initial work-up the ER was consistent SIRS with a fever of 102.4. Blood culture was drawn/CTA chest negative for PE. Antibiotics were initiated. Hospital service was consulted in light of above. At the time of my evaluation patient is alert and oriented. He was able to answer most of the question and talk in full sentences. He endorses to history as above. He denies syncopal episode/hemoptysis/weight loss/abdominal pain. 08/16-GPC bacteremia on blood cultures. Started on vancomycin. Echocardiogram ordered. Surveillance blood cultures. White count stable. Fever defervesced. Unclear source. Consider ID consult if persistent bacteremia and no identifiable source. White count 10,000, creatinine 1.1. No overnight events. No additional concerns expressed by nursing staff. 08/17-strep agalactiae on blood cultures. Repeat cultures pending. White count stable. Afebrile. Stable renal function. at bedside. Doing well. No overnight events. Blood pressures systolics around 150. Started on home dose YOUISF inhibitor. Ongoing therapies. Antibiotics deescalated to Rocephin from Zosyn and vancomycin. 08/18-repeat blood cultures positive for gram-positive cocci. Echocardiogram performed. ID consulted. Recommends CT sinuses. No obvious source of infection. White count stable. On Rocephin. Duration of antibiotics will be determined based on surveillance cultures results. at bedside. No other concerns pain fever shortness of breath. 08/19-patient doing well. Surveillance cultures negative so far. Echocardiogram no evidence of vegetation. EF 66% white count 6.5. Systolics elevated last night and hence thiazide dose increased to 25 and added amlodipine. This morning systolics 160s. at bedside. Discussed treatment plan. No obvious source identified. CTs scan sinuses reveals extensive sinusitisInvolving maxillary and bilateral ethmoid and sphenoid. Will need outpatient ENT follow- up for chronic management of sinusitis. On antibiotic coverage at this time 08/20-patient doing well. No overnight events. No concerns per staff. Cultures negative so far. Will be placed PICC line in 24 hours and discharged on IV Rocephin. Duration to be determined based on ID recommendations. Stable white count. Systolics improved around 150s following increasing dose of thiazide/amlodipine 5 08/21-patient doing well. No overnight fever. Surveillance cultures negative. Discharging with advised to continue Rocephin for additional 4 weeks as per ID recommendations. Also patient needs to follow-up with ID Dr. Suarez in 3 weeks as outpatient. Continue PICC line care. Also recommend follow-up with ENT. Appointment needs to be scheduled prior to discharge Date of admission: 08/15/20 20:23 Discharge date: 08/21/20 Primary care physician: Umesh Eason Consults: 08/15/20 16:06 Consult to Physician [CONS] Stat Comment: Consulting Provider: Darren Wasserman Reason For Exam: Physician to Consult 08/17/20 17:33 Consult to Physician [CONS] Routine Comment: Consulting Provider: Gregorio Suarez Reason For Exam: Physician to Consult Discharge Meds Discharge Medications Home Medications niacin 500 mg capsule,extended release 500 mg PO QAM cap 11/25/14 [History Confirmed 08/15/20 Last Taken 08/13/20] omega-3 fatty acids 1,000 mg capsule 1,000 mg PO QDAY cap 11/25/14 [History Confirmed 08/15/20 Last Taken 08/13/20] tamsulosin 0.4 mg capsule 0.4 mg PO QDAY cap 11/25/14 [History Confirmed 08/15/20 Last Taken 08/14/20 12:30] allopurinol 100 mg tablet 100 mg PO TID tab 11/21/17 [History Confirmed 08/15/20 Last Taken 08/15/20 09:00] cholecalciferol (vitamin D3) 50 mcg (2,000 unit) capsule 2,000 unit PO QDAY cap 11/21/17 [History Confirmed 08/15/20 Last Taken 08/13/20] garlic extract 500 mg capsule 1,000 mg PO QDAY cap 11/21/17 [History Confirmed 08/15/20 Last Taken 08/13/20] magnesium 500 mg PO QDAY 11/21/17 [History Confirmed 08/15/20 Last Taken 08/13/20] multivitamin 1 tab PO QAM 05/12/20 [History Confirmed 08/15/20 Last Taken 08/13/20] diltiazem HCl 180 mg capsule,extended release 24 hr 180 mg PO QHS #90 cap 08/10/20 [Rx Confirmed 08/15/20 Last Taken 08/15/20 13:00] amlodipine 5 mg PO DAILY #30 tab 08/21/20 [Rx Last Taken Unknown] ceftriaxone 2 gm IV DAILY #28 ea 08/21/20 [Rx Last Taken Unknown] hydrochlorothiazide 25 mg PO DAILY #30 tab 08/21/20 [Rx Last Taken Unknown] losartan [Cozaar] 100 mg PO DAILY #30 tab 08/21/20 [Rx Last Taken Unknown] COURSE Hospital Course Hospital course: . Discharge diagnosis: Streptococcus bacteremia Time Spent with Patient Time attestation: Total time spent providing and/or coordinating discharge services: EXAM Constitutional Vitals: Temp Pulse Resp BP Pulse Ox 98.4 F 70 20 156/90 96 08/21/20 07:56 08/21/20 07:56 08/21/20 07:56 08/21/20 07:56 08/21/20 07:56 Discharge Data Data Completed and Pending Labs on day of discharge: Preliminary micro results at discharge 08/18/20 20:55 Blood Culture - Preliminary Blood 08/18/20 20:50 Blood Culture - Preliminary Blood 08/17/20 15:27 Blood Culture - Preliminary Blood 08/17/20 15:20 Blood Culture - Preliminary Blood 08/16/20 05:43 Blood Culture - Preliminary Blood Micrococcus luteus Discharge Plan Patient/Caregiver Discharge Instructions Activity: increase activity as tolerated Diet: Low Sodium (2gm) Instructions: Sepsis (IP), How to Care for Your PICC (Peripherally Inserted Central Catheter) (DC) Activity Restrictions/Additional Instructions: Follow-up with infectious disease specialist Dr. Suarez in 3 weeks-please schedule appointment prior to discharge Follow-up PCP in 5 to 7 days Continue IV Rocephin for 4 weeks PICC line care Follow-up with ENT for evaluation management of severe sinusitis-please schedule appointment prior to discharge Follow-up nephrology in 2 weeks for management and optimization of chronic kidney disease and hypertension Return to ER if worsening fever chills headache noted Prescriptions: New losartan [Cozaar] 50 mg Tablet 100 mg PO DAILY Qty: 30 RF: 0 amlodipine 5 mg Tablet 5 mg PO DAILY Qty: 30 RF: 0 hydrochlorothiazide 25 mg Tablet 25 mg PO DAILY Qty: 30 RF: 0 ceftriaxone 2 gram Recon Soln 2 gm IV DAILY Qty: 28 RF: 0 Continued cholecalciferol (vitamin D3) 2,000 unit capsule 2,000 unit PO QDAY RF: 0 garlic extract 500 mg capsule 1,000 mg PO QDAY RF: 0 magnesium 500 mg PO QDAY RF: 0 allopurinol 100 mg tablet 100 mg PO TID RF: 0 omega-3 fatty acids 1,000 mg capsule 1,000 mg PO QDAY RF: 0 tamsulosin 0.4 mg capsule,extended release 24hr 0.4 mg PO QDAY RF: 0 niacin 500 mg capsule, extended release 500 mg PO QAM RF: 0 multivitamin [Daily Multi-Vitamin] Tablet 1 tab PO QAM RF: 0 diltiazem HCl 180 mg capsule,extended release 24hr 180 mg PO QHS Qty: 90 RF: 3 Discontinued losartan-hydrochlorothiazide 100-12.5 mg tablet 1 tab PO QDAY RF: 0 amoxicillin-pot clavulanate 875-125 mg tablet 1 tab PO BID RF: 0 Follow Up Plan Follow up with: Umesh Eason DO [Primary Care Provider] - 08/29/20 1:20 pm Patient Disposition: Home, Self-Care Rehab Potential: Fair I certify that the patient requires SNF services: No Overall status at discharge: patient is progressing back to baseline Discharge Orders: Discharge Order (Routine); Ordered 08/21/20 Ordered By: Darren Wasserman
--- NOTE | 2020-08-21 11:10 | XRay Report ---
HISTORY: PICC line placement FINDINGS: A PICC line has been inserted through the left arm. The tip is in the mediastinum at the level of the top of the superior vena cava. There is no widening of the mediastinum and no pneumothorax or pleural effusion. Patient is rotated to the right. The lungs are clear. Heart may be mildly enlarged. There is a left shoulder prosthesis. IMPRESSION: No complication following PICC line insertion. Nursing was called with report Interpreted and Authenticated by: Erick Phillips 08/21/20
[2020-08-21] MEDS: cefTRIAXone 2 GM in DEXTROSE 5% IN WATER 50 ML IV SCH (11:43)
[2020-08-21] MEDS ORDERED: 0.9 % SODIUM CHLORIDE 10 ML SYRINGE IV SCH (21:00)
== END 2020-08-21 14:55 | disposition home or self-care (01) | DRG 872 ==
LOC: ED 11:21 → ICU 20:23 → MEDSUR 08-17 14:05
PROVIDERS: ADMIT Internal Medicine; ATTEND Internal Medicine